=== PATIENT | female | born 1945 | race African-American/Black ===

== ENCOUNTER 2017-04-24 03:04 | Emergency (ER) | payer MEDICARE, OTHER ==
[2017-04-24] MEDS ORDERED: Thrombin 20,000 UNITS* KIT - spray for topical use - TOPICAL ONE (06:45)
[2017-04-24] MEDS ORDERED: Oxymetazoline 0.05% NASAL SPR* 15 ML BTL LEFT NARE ONE (09:20)
[2017-04-24 09:28] VITALS: BP 129/72
--- NOTE | 2017-04-24 10:12 | ED ---
Gerhard Castillo Angela, scribed for Antonio Kilgore MD on 04/24/17 at 0912 . Progress - Progress Note Progress Note: This pt was signed out by Dr. Morgan, pending disposition, awaiting procedure. Thrombin unavailable per pharmacy, bleeding controlled spontaneously w pressure. Oxymetaz nasal spray administered, pt in no acute distress, instructed to fu wiht ENT and pmd and to return to the ED if any recurrence. pt agreees to and understnads dc instructions no nasal septal hematoma appreciated Re-Evaluation - Re-Evaluation First Eval Re-Evaluation Time: 10:11 Course/Dx - Diagnoses Provider Diagnoses: Epistaxis The documentation as recorded by the Gerhard prieto Angela accurately reflects the service I personally performed and the decisions made by , Antonio Kilgore MD.
--- NOTE | 2017-04-25 03:13 | ED ---
Jose L Castillo Benjamin, scribed for Alice Morgan MD on 04/24/17 at 0701 . Throat Pain/Nasal Congestion - HPI Summary HPI Summary: 71yo female BIBA c/o waking up with sudden bilateral epistaxis. Nose bleed started spontaneously without any trauma. Pt is not on any blood thinner and last epistaxis episode pt had was 12 years ago. Last time, pt was seen by ENT, who cauterized her nosebleed. Pt went through 2 towels of blood and bleeding is now controlled with pressure. Pt states that she feels a clot at the back of her nasal cavity and wants to blow her nose to relieve the clot. Pt states the blood came primarily from her left nostril, but "overflowed" to her right nostril, and also came out of both eyes. Pts vital sign were: BP 168/89 O2 sat of 95, pulse 99 upon intial evaluation. FHx of Pagets ds in her father, bone CA, and Lung CA. Hx of HTN, left knee replacement. - History of Current Complaint Chief Complaint: EDEpistaxis Hx Obtained From: Patient Onset/Duration: Sudden Onset, Lasting Hours, Resolved Severity: Mild Associated Signs And Symptoms: Positive: Negative Cough: None Related History: Other (Noted In Comments) - prior nosebleed requiring cautery, years ago - Allergies/Home Medications Allergies/Adverse Reactions: Allergies Allergy/AdvReac Type Severity Reaction Status Date / Time Aspirin Allergy NOSE BLEED Verified 10/14/13 07:23 Penicillins Allergy EYE AND Verified 10/14/13 07:23 THROAT EDEMA ENVIRONMENTAL Allergy WHEEZE, Uncoded 10/14/13 07:23 ITCHING, SNEEZING PMH/Surg Hx/FS Hx/Imm Hx Previously Healthy: No Endocrine/Hematology History: Reports: Hx Anemia Cardiovascular History: Reports: Hx Hypertension - ON MEDS Respiratory History: Reports: Hx Asthma GI History: Reports: Hx Ulcer - 15 YEARS AGO Musculoskeletal History: Reports: Hx Arthritis - KNEES, RIGHT THUMB Sensory History: Reports: Hx Cataracts - SIN, Hx Contacts or Glasses - GLASSES Denies: Hx Hearing Aid Opthamlomology History: Reports: Hx Cataracts - SIN, Hx Contacts or Glasses - GLASSES Psychiatric History: Reports: Hx Anxiety - ON MEDS, Hx Depression - ON MEDS - Surgical History Surgery Procedure, Year, and Place: GASTRIC BYPASS, 2003, [place]. LEFT KNEE REPLACEMENT, 2010, [facility] [place]. GALLBLADDER, 1992, [facility] [place]. SIN EYELID, 2006, [place]. LEFT WRIST 195. TUBAL LIGATION, 1977, [facility] [place] Hx Anesthesia Reactions: No Infectious Disease History: No Infectious Disease History: Denies: Traveled Outside the [place] in Last 30 Days - Family History Known Family History: Positive: Other - Pagets dz, bone CA, and Lung CA. Negative: Cardiac Disease, Hypertension - Social History Alcohol Use: None Substance Use Type: Reports: None Smoking Status (MU): Former Smoker Amount Used/How Often: 1-2 PACKS A DAY Have You Smoked in the Last Year: No Review of Systems Constitutional: Negative Eyes: Negative Positive: Epistaxis - bilateral Cardiovascular: Negative Respiratory: Negative Gastrointestinal: Negative Genitourinary: Negative Musculoskeletal: Negative Skin: Negative Neurological: Negative Psychological: Normal All Other Systems Reviewed And Are Negative: Yes Physical Exam Triage Information Reviewed: Yes Vital Signs On Initial Exam: Initial Vitals Temp Pulse Resp BP Pulse Ox 98.3 F 85 18 145/81 97 04/24/17 03:04 04/24/17 03:04 04/24/17 03:04 04/24/17 03:04 04/24/17 03:04 Vital Signs Reviewed: Yes Appearance: Positive: Well-Appearing, No Pain Distress, Obese Skin: Positive: Warm, Skin Color Reflects Adequate Perfusion, Dry Head/Face: Positive: Normal Head/Face Inspection Eyes: Positive: EOMI, JEANNETTE, Conjunctiva Clear, Other: - evidence of dried blood under both eyes consistent with pt's hx of blood from her nose and eyes. No eye abnormality noted. ENT: Positive: Hearing grossly normal, Pharynx normal, TMs normal, Other - No bleeding in the back of the throat or back of the nose, but visible clots in bilat nares. No active nosebleeding site identified. Neck: Positive: Supple Respiratory/Lung Sounds: Positive: Clear to Auscultation, Breath Sounds Present Cardiovascular: Positive: RRR, Pulses are Symmetrical in both Upper and Lower Extremities. Negative: Murmur Abdomen Description: Positive: Nontender, Soft Bowel Sounds: Positive: Present Musculoskeletal: Positive: Strength/ROM Intact Neurological: Positive: Sensory/Motor Intact, Alert, Oriented to Person Place, Time, Facial Symmetry, Speech Normal Psychiatric: Positive: Affect/Mood Appropriate - [place] Coma Scale Coma Scale Total: 15 Diagnostics - Vital Signs Vital Signs Temp Pulse Resp BP Pulse Ox 04/24/17 03:04 98.3 F 85 18 145/81 97 - Laboratory Lab Statement: Any lab studies that have been ordered have been reviewed, and results considered in the medical decision making process. Re-Evaluation - Re-Evaluation First Eval Re-Evaluation Time: 10:11 EENT Course/Dx - Course Course Of Treatment: Reviewed pts medication and allergy lists. High Blood pressure noted. Assessment/Plan: Pt wishes to "blow out the clot". Care will be signed out to Dr. Kilgore at change of shift for further management with possible nasal thrombin. Pt does not want "rhino rocket". Bleeding controlled at time of sign out, 0700. - Differential Diagnoses Differential Diagnoses: Allergic Rhinitis, Coagulopathy, Hypertension, Sinusitis - Diagnoses Provider Diagnoses: Epistaxis, Hypertension, poor control Discharge - Discharge Plan Condition: Improved Disposition: HOME Patient Education Materials: Nosebleed (ED) Referrals: Tomas Bautista MD [Medical Doctor] - Wild Dudley MD [Primary Care Provider] - Additional Instructions: PLEASE MAKE AN APPOINTMENT FIRST THING IN THE MORNING TO BE SEEN BY YOUR PRIMARY CARE DOCTOR AND ENT DOCTOR WITHIN 1 WEEK IF SYMPTOMS HAPPEN AGAIN PLEASE RETURN TO THE EMERGENCY ROOM IF YOU HAVE ANY WORSENING OR CONCERNING SYMPTOMS The documentation as recorded by the Jose L prieto Benjamin accurately reflects the service I personally performed and the decisions made by me, Alice Morgan MD.
== END 2017-04-24 10:29 | disposition home or self-care (01) ==
LOC: ED 03:04
DX: R04.0 Epistaxis (principal); I10 Essential (primary) hypertension; Z87.891 Personal history of nicotine dependence
CPT/HCPCS: 99283; A9270-GY

== ENCOUNTER 2019-09-06 19:59 | Inpatient (IN) | payer MEDICARE, OTHER ==
[2019-09-06 20:58] LABS: Influenza A Molecular Negative (Negative); Influenza B Molecular Negative (Negative)
[2019-09-06] MEDS ORDERED: Albuterol/Ipratropium NEB.SOL* Albuterol 2.5 MG/Ipratropium 0.5 MG 3 ML INH ONE (21:25)
[2019-09-06 21:33] LABS: Hematocrit 40 % (35-47); Hemoglobin 13.6 g/dL (12.0-16.0); Mean Corpuscular HGB Conc 34 g/dL (31-36); Mean Corpuscular Hemoglobin 29 pg (27-31); Mean Corpuscular Volume 85 fL (80-97); Mean Platelet Volume 8.5 fL (7.4-10.4); Platelet Count 376 10^3/uL (150-450); Red Blood Count 4.75 10^6 /uL (3.70-4.87); Red Cell Distribution Width 16 % (10-15)
[2019-09-06 21:38] LABS: ABS Basophils 0.1 10^3/ul (0-0.2); ABS Lymphocytes 1.3 10^3/ul (1.0-4.8); ABS Monocytes 1.7 10^3/ul (0-0.8); ABS Neutrophils 14.8 10^3/ul (1.5-7.7); Eosinophil % 0.2 %; Lymphocyte % 7.2 %
--- NOTE | 2019-09-06 21:39 | ED ---
Complex/Multi-Sys Presentation - HPI Summary HPI Summary: Patient is a 74 y/o F presenting to [facility] with complaints of SOB, chest pain, cough, decreased appetite, fatigue, and subjective fever. Patient states that chest pain occurs whenever she takes in a deep breath; this Sx onset 09/01/19. Patient describes her subjective fevers as intermittent. She denies vomiting and diarrhea. 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 She reports Hx of HTN, COPD, asthma but denies Hx of HLD, diabetes, and cardiac disease. Penicillin and ASA allergy claimed. PSHx of Jessica-en-Y and cholecystectomy noted. FMHx of bone and lung CA reported. She states that she takes prednisone daily and took breathing treatments at home without relief in Sx. Home medications and allergies are reviewed. - History Of Current Complaint Chief Complaint: EDShortnessOfBreath Time Seen by Provider: 09/06/19 20:19 Hx Obtained From: Patient Onset/Duration: Lasting Days Timing: Intermittent, Lasting: - fever, Hours Location: Pain At: - chest Aggravating Factor(s): deep breaths Associated Signs And Symptoms: Positive: SOB, Cough, Chest Pain, Decreased Oral Intake - decreased appetite, Fever - subjective, Other - fatigue - Allergies/Home Medications Allergies/Adverse Reactions: Allergies Allergy/AdvReac Type Severity Reaction Status Date / Time aspirin Allergy Bleeding Verified 09/06/19 20:12 Penicillins Allergy Anaphylatic Verified 09/06/19 20:12 Shock ENVIRONMENTAL Allergy WHEEZE, Uncoded 10/14/13 07:23 ITCHING, SNEEZING Home Medications: Home Medications Acetaminophen [Gnp Pain Relief Extra Str] 2 tab PO PRN 10/05/13 [History Confirmed 10/14/13] Albuterol Sulfate [Proventil Hfa] 2 puff INH Q4HR PRN 10/05/13 [History Confirmed 09/07/19] Citalopram Hydrobromide 30 mg PO BEDTIME 10/05/13 [History Confirmed 09/07/19] Fluticasone/Salmeterol [Advair 500-50 Diskus] 1 puff INH QAM 10/05/13 [History Confirmed 09/07/19] Hydrochlorothiazide TAB* [Hydrodiuril TAB*] 25 mg PO DAILY 10/05/13 [History Confirmed 09/07/19] Viactiv Multi-Vitamin 1 tab PO DAILY 10/05/13 [History Confirmed 10/14/13] Vitamin B 12 500 mcg PO QAM 10/05/13 [History Confirmed 09/07/19] hydrOXYzine HCL [Hydroxyzine HCl] 10 mg PO QID PRN 09/07/19 [History Confirmed 09/07/19] Albuterol 2.5MG/3ML (0.083%)* [Ventolin 2.5 MG/3 ML NEB.JUANJO*] 2.5 mg INH Q4H PRN #2 neb.soln 09/11/19 [Rx] Benzonatate CAP* [Tessalon 100 MG CAP*] 100 mg PO Q6H PRN #30 cap 09/11/19 [Rx] Levofloxacin TAB* [Levaquin 750 MG TAB*] 750 mg PO DAILY #5 tab 09/11/19 [Rx] Magnesium Hydroxide LIQ* [Milk of Magnesia LIQ*] 30 ml PO BID #1 udc 09/11/19 [ Rx] guaiFENesin 100 mg/5 ml LIQ [Robitussin 100 mg/5ml LIQ] 5 ml PO Q4H PRN #1 udc 09/11/19 [Rx] PMH/Surg Hx/FS Hx/Imm Hx Endocrine/Hematology History: Reports: Hx Anemia Cardiovascular History: Reports: Hx Hypertension - ON MEDS Respiratory History: Reports: Hx Asthma, Hx Chronic Obstructive Pulmonary Disease (COPD) GI History: Reports: Hx Ulcer - 15 YEARS AGO Musculoskeletal History: Reports: Hx Arthritis - KNEES, RIGHT THUMB Sensory History: Reports: Hx Cataracts - SIN, Hx Contacts or Glasses - GLASSES Denies: Hx Hearing Aid Opthamlomology History: Reports: Hx Cataracts - SIN, Hx Contacts or Glasses - GLASSES Psychiatric History: Reports: Hx Anxiety - ON MEDS, Hx Depression - ON MEDS - Surgical History Surgery Procedure, Year, and Place: GASTRIC BYPASS, 2003, [place]. LEFT KNEE REPLACEMENT, 2009, [facility] [place]. GALLBLADDER, 1992, [facility] [place]. SIN EYELID, 2006, [place]. LEFT WRIST 195. TUBAL LIGATION, 1977, [facility] [place] Hx Anesthesia Reactions: No Infectious Disease History: No Infectious Disease History: Denies: Traveled Outside the [place] in Last 30 Days - Family History Known Family History: Positive: Other - Pagets dz, bone CA, and Lung CA. Negative: Cardiac Disease, Hypertension - Social History Alcohol Use: None Substance Use Type: Reports: None Smoking Status (MU): Former Smoker Amount Used/How Often: 1-2 PACKS A DAY Have You Smoked in the Last Year: No Review of Systems - ROS Summary Review of Systems Summary: Home Medications Medication Instructions Recorded Confirmed Type Acetaminophen [Gnp Pain Relief 2 tab PO PRN 10/05/13 10/14/13 History Extra Str] Albuterol Sulfate [Proventil Hfa] 1 puff INH BID 10/05/13 10/14/13 History Citalopram Hydrobromide 20 mg PO BEDTIME 10/05/13 10/14/13 History Fluticasone Propionate (Nasal) 1 spray BOTH NARES DAILY 10/05/13 10/14/13 History [Fluticasone Propionate] Fluticasone/Salmeterol [Advair 1 puff INH BID 10/05/13 10/14/13 History Diskus 500-50 Mcg/Dose] Hydrochlorothiazide TAB* 12.5 mg PO DAILY 10/05/13 10/14/13 History [Hydrodiuril TAB*] Meclizine TAB* [Antivert TAB*] 25 mg PO TID PRN 10/05/13 10/14/13 History Multivitamin 2 tab PO DAILY 10/05/13 10/14/13 History Viactiv Multi-Vitamin 1 tab PO DAILY 10/05/13 10/14/13 History Vitamin B 12 500 mcg PO BID 10/05/13 10/14/13 History Positive: Fever - subjective , Fatigue Positive: Chest Pain Positive: Shortness Of Breath, Cough Gastrointestinal: Other - Decreased Appetite Negative: Vomiting, Diarrhea All Other Systems Reviewed And Are Negative: Yes Physical Exam - Summary Physical Exam Summary: General: Well-developed, Obese, Elderly Female. Mild Respiratory Distress. HEENT: Normocephalic, Atraumatic. Eyes: Conjuctiva normal, PERRL. Oropharynx: Clear, mucous membranes moist, (-) exudates. Neck: Soft, FROM, (-) lymphadenopathy, (-) thyromegaly, (-) JVD. Cardiovascular: Normal sinus rhythm, (-) murmur. Lungs: Appears in mild respiratory distress, decreased breath sounds bilaterally , tight wheezing throughout, poor air exchange; (-) rales, (-) rhonchi. Abdomen: Soft, non-tender, non-distended, (-) organomegaly, normal bowel sounds. Back: (-) CVA tenderness Extremities: 1+ BLE edema Skin: Warm, dry, (-) rash. Neuro: Alert and oriented x3, moves all extremities equally. No ataxia. No gait disturbance. No sensory deficit. Normal strength, normal sensation. Psychiatric: Mood normal, affect normal. Triage Information Reviewed: Yes Vital Signs On Initial Exam: Initial Vitals Temp Pulse Resp BP Pulse Ox 98.1 F 109 20 124/65 93 09/06/19 20:08 09/06/19 20:08 09/06/19 20:08 09/06/19 20:08 09/06/19 20:08 Vital Signs Reviewed: Yes Procedures - Sedation Patient Received Moderate/Deep Sedation with Procedure: No Diagnostics - Vital Signs Vital Signs Temp Pulse Resp BP Pulse Ox 09/06/19 21:10 97.9 F 09/06/19 21:00 111 21 118/78 91 09/06/19 20:58 24 09/06/19 20:08 98.1 F 109 20 124/65 93 - Laboratory Lab Results: Lab Results 09/06/19 09/06/19 Range/Units 20:20 21:21 WBC 18.0 H (3.5-10.8) 10^3/uL RBC 4.75 (3.70-4.87) 10^6 /uL Hgb 13.6 (12.0-16.0) g/dL Hct 40 (35-47) % MCV 85 (80-97) fL MCH 29 (27-31) pg MCHC 34 (31-36) g/dL RDW 16 H (10-15) % Plt Count 376 (150-450) 10^3/uL MPV 8.5 (7.4-10.4) fL Neut % (Auto) Pending Lymph % (Auto) Pending [place] % (Auto) Pending Eos % (Auto) Pending Baso % (Auto) Pending Absolute Neuts (auto) Pending Absolute Lymphs (auto) Pending Absolute Monos (auto) Pending Absolute Eos (auto) Pending Absolute Basos (auto) Pending Absolute Nucleated RBC Pending Nucleated RBC % Pending Influenza A (Rapid) Negative (Negative) Influenza B (Rapid) Negative (Negative) Result Diagrams: 09/10/19 04:38 09/11/19 04:42 Lab Statement: Any lab studies that have been ordered have been reviewed, and results considered in the medical decision making process. - Radiology CXR Radiology Interpretation Completed By: ED Physician Summary of Radiographic Findings: Decreased inflation of left lung, pending official report. - CT CHEST CT CT Interpretation Completed By: Radiologist Summary of CT Findings: IMPRESSION: 1. Left upper lobe collapse and opacification of the left upper lobe bronchus. A bronchoscopy is suggested to exclude an endobronchial tumor. 2. Pretracheal lymphadenopathy. THIS REPORT WAS REVIEWED BY ED PHYSICIAN. - EKG 2020 Cardiac Rate: Tachycardia - rate of 113 BPM EKG Rhythm: Sinus Tachycardia Summary of EKG Findings: EKG showed sinus tachycardia with rate of 113 BPM, no STEMI. ED physician has reviewed and interpreted this EKG. Complex Multi-Symp Course/Dx Course Of Treatment: 74-year-old female presents with chest pain when she takes a deep breath. Started on August 31. Subjective fevers. Fatigue. Dry cough. No appetite. 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 She reports Hx of HTN, COPD, asthma. She states that she takes prednisone daily and took breathing treatments at home without relief in Sx. On physical exam, patient in mild respiratory distress, decreased breath sounds bilaterally, tight wheezing throughout, poor air exchange. During ED course, patient received duoneb, solu- medrol. Laboratories demonstrate elevated white count. CT scan demonstrates partial upper left lobe collapse. Lymphadenopathy in the perihilar region. Patient referred to hospitalist for admission. - Diagnoses Provider Diagnoses: Collapse of left lung, COPD exacerbation - Physician Notifications Discussed Care Of Patient With: Kelly Solorio Time Discussed With Above Provider: 23:45 Instructed by Provider To: Other - Patient's case was discussed with Dr. Soolrio, Dr. Solorio to admit the patient to hospitalist services. Discharge ED - Sign-Out/Discharge Documenting (check all that apply): Patient Departure - admit - Discharge Plan Condition: Improved Disposition: ADMITTED TO [facility] - Billing Disposition and Condition Condition: IMPROVED Disposition: Admitted to [facility] - Attestation Statements Document Initiated by Pricilaibramona: Yes Documenting Scribe: MG VILLANUEVA Provider For Whom [facility] is Documenting (Include Credential): ALY CAPELLAN MD Scribe Attestation: IMG, scribed for ALY CAPELLAN MD on 09/15/19 at 2045. Scribe Documentation Reviewed: Yes Provider Attestation: The documentation as recorded by the pricilaibMG greene accurately reflects the service I personally performed and the decisions made by me, ALY CAPELLAN MD Status of Scribe Document: Viewed
[2019-09-06 21:41] LABS: INR 1.34 (0.82-1.09)
[2019-09-06 21:52] LABS: Albumin 3.1 g/dL (3.2-5.2); Albumin/Globulin Ratio 0.7 (1-3); BUN/Creatinine Ratio 23.4 (8-20); Calcium 11.1 mg/dL (8.6-10.3); EGFR African American 45.4 (>60); EGFR Non-African American 37.5 (>60); Globulin 4.3 g/dL (2-4); Potassium 3.9 mmol/L (3.5-5.0); Total Bilirubin 1.2 mg/dL (0.2-1.0); Total Protein 7.4 g/dL (6.4-8.9)
[2019-09-06 21:53] LABS: Troponin I 0.01 ng/mL (<0.03)
[2019-09-06] MEDS ORDERED: methylPREDNISolone 125 MG* 2 ML VIAL IV ONE (22:02)
[2019-09-07] MEDS ORDERED: Albuterol 2.5 MG/3 ML NEB.SOL* (0.083%) INH PRN ×2 (00:13→17:50)
[2019-09-07] MEDS ORDERED: NS 0.9% 1000 ML** 1,000 ML IV SCH (00:15)
[2019-09-07] MEDS ORDERED: Acetaminophen TAB* 325 MG PO PRN (00:26)
[2019-09-07] MEDS ORDERED: Ondansetron INJ* 2 MG/ML VIAL IV PRN (00:26)
[2019-09-07] MEDS: Cefepime 2 GM in Dextrose(*) 2 GM/50 ML BAG IV SCH ×2 (02:18→14:21)
[2019-09-07] MEDS ORDERED: Albuterol/Ipratropium NEB.SOL* Albuterol 2.5 MG/Ipratropium 0.5 MG 3 ML INH SCH (03:00)
[2019-09-07] MEDS ORDERED: Albuterol/Ipratropium NEB.SOL* Albuterol 2.5 MG/Ipratropium 0.5 MG 3 ML INH PRN (03:08)
[2019-09-07 03:30] LABS: Troponin I 0.03 ng/mL (<0.03)
--- NOTE | 2019-09-07 03:33 | HP ---
CC: Dr. Dudley; Dr. Campo * HISTORY AND PHYSICAL: DATE OF ADMISSION: 09/07/19 PRIMARY CARE PROVIDER: Dr. Dudley. ATTENDING PHYSICIAN WHILE IN THE HOSPITAL: Dr. Solorio * (report dictated by Ronak Otto NP). CONSULTING CORPORATE GIVING MANAGER: Dr. Campo. CHIEF COMPLAINT: 1. Cough. 2. Shortness of breath. HISTORY OF PRESENTING ILLNESS: Ms. Wall is a 74-year-old female patient who carries a history of asthma; vertigo; hypertension; arthritis; PILAR, not on a mask; and depression, who comes in to our ER today stating that on last week she developed right-sided chest discomfort that she described as a sharp, stabbing pain worse with cough and deep breath that eventually throughout the remainder of the weekend on Saturday started going over to her left chest, which she says felt like a sharp, stabbing pain that got worse if she took a deep breath or anytime she coughed. She noted that she was becoming short of breath particularly with exertion and at rest but denied any orthopnea or weight gain or weight loss for that matter. She says that she has been feeling chills. She has not had any recent travel, no recent surgery. She said that she is a homebody, the only person that she has contact with is a friend that helps her with her medications that comes every 3 days and helps with cleaning. She says she has not really had an appetite since Saturday last week. She has not really had any hemoptysis. No productive cough. She denies again any sick contacts or travel and says that the chest pain comes whenever she takes a deep breath or coughs. She says that she has not had any tarry stools and she says her last colonoscopy was greater than 10 years ago. She denied any documented fever. No nausea, vomiting, or diarrhea was reported and no abdominal discomfort. She came in to the ED, was ultimately found that she appeared to have an element of sepsis on her initial lab findings and she had a CT, which was concerning for a possible left upper lobe collapse and opacification of the left upper lobe bronchus. Because of these findings, we were asked to evaluate for admission. PAST MEDICAL HISTORY: Significant for: 1. Asthma. 2. Vertigo. 3. Hypertension. 4. Arthritis. 5. Depression. 6. PILAR. PAST SURGICAL HISTORY: 1. She has had a tubal ligation. 2. Left total knee arthroplasty. 3. Cataracts. 4. Laparoscopic cholecystectomy. 5. Gastric bypass. HOME MEDICATIONS: At this point, she does not have her purse with her and she cannot update. The old list in the computer I have is: 1. Vitamin B12 500 mcg p.o. b.i.d. 2. Multivitamin 1 tablet daily. 3. Meclizine 25 mg t.i.d. as needed. 4. Hydrochlorothiazide 12.5 mg daily, but she says she stopped this. 5. Advair 1 puff inhaled b.i.d. 6. Fluticasone 1 spray both nares daily. 7. Citalopram 20 mg at bedtime. 8. Albuterol 1 puff inhaled b.i.d. 9. Tylenol 2 tablets daily as needed. We will need to update this list with her PCP when able. ALLERGIES TO MEDICATIONS: Include ASPIRIN, PENICILLIN, and ENVIRONMENTAL. FAMILY HISTORY: Her mother had a history of lung cancer, she was a heavy smoker , and father had a history of Paget disease. SOCIAL HISTORY: The patient is a former smoker, she quit 3 years ago. She was smoking E-cigarettes, but prior to that she was a 2-zgwv-q-day smoker for approximately 50+ years. She does not drink alcohol. She is . She has no children. She is unable to appoint a surrogate decision maker at this point. She is unsure who she wants to appoint. REVIEW OF SYSTEMS: There is no documented fever. She does admit to having chills. She denied having any significant weight change. There is no ear discharge. There is no rhinorrhea. No sore throat. No thyroid enlargement. She does admit to chest pain, shortness of breath with rest and exertion. There is no orthopnea, no nocturnal dyspnea, no abdominal pain, no nausea, no vomiting, no dysuria, no frequency, no seizure, no loss of consciousness, no pruritus, and no skin ulcerations. Review of 14 systems completed, all others are negative. PHYSICAL EXAMINATION GENERAL: At this time, Ms. Wall is a 74-year-old female patient; she is sitting in the ED stretcher. She does not appear to be in any acute distress. She is morbidly obese. VITAL SIGNS: Blood pressure 160/89; pulse 108; respirations were 28; O2 saturation 94%, she is on 2 L; and temperature 97.9. HEENT: Head: Atraumatic, normocephalic. Eyes: EOMs are intact. Sclerae anicteric, not pale. Throat: Oral mucosa appears to be moist. No oropharyngeal erythema. NECK: Supple. LUNGS: She had expiratory wheezing throughout. Decreased breath sounds in the left upper lobe. Equal diaphragmatic expansion. HEART: Heart sounds S1, S2. Regular rate and rhythm. No murmurs, rubs, or gallops. ABDOMEN: Soft, flat, nontender. Bowel sounds present. EXTREMITIES: Pulses were 2+ throughout. She has no peripheral edema noted. NEUROLOGICAL: She is awake, alert, oriented x3. Speech was clear. Strength was equal throughout. No gross focal deficits. SKIN: Grossly intact. LABORATORY DATA/DIAGNOSTIC STUDIES: WBC of 18.0, RBC of 4.75, hemoglobin of 13.6, hematocrit of 40, platelet count 376. INR 1.34. Blood gas revealed a pH of 7.36, pCO2 of 34, pO2 of 69, bicarb of 20.6. Sodium 135; potassium 3.9; chloride of 101; bicarb 19; BUN 32; creatinine 1.37, which is up from her baseline of 0.8; glucose of 111, lactate 1, calcium 11.1. Total bili 1.2, AST 19, ALT 21, alk phos 203. Troponin 0.01. BNP 102. Albumin 3.1. Serology negative for flu. She had a chest CT which showed, impression: Left upper lobe collapse and opacification of the left upper lobe bronchus. A bronchoscopy is suggested to exclude an endobronchial tumor. Paratracheal lymphadenopathy noted. Again, when I reviewed the chest x- ray, she does appear to have whiteout of the left lung. An EKG today shows a sinus tachycardia, rate of 109. She had no T-wave inversion noted. They were flat in aVL but there is artifact. No ST elevation. I reviewed her EKG from earlier tonight, it appears to be again similar in nature, no acute findings, no acute changes noted. Old medical records were reviewed. ASSESSMENT AND PLAN: Ms. Duke Gross is a 74-year-old female patient coming in to the ED today with complaints of cough, not feeling well, fatigue, decreased appetite. On evaluation today, on CT imaging found to have collapse of the left upper lobe with opacification. She will be admitted under inpatient status for: 1. Severe sepsis. I suspect that she has postobstructive pneumonia. She has a white count of 18,000. She is tachycardic. She does have some acute kidney injury, which could be acute tubular necrosis. My plan at this point, I would not give her the 30 cc/kg bolus because her blood pressure is maintaining. I would give her saline at 100 an hour as I do think she is a little dehydrated. I am placing her on cefepime. We will be monitoring for any cross reactivity, although this is unlikely to happen. We will consult with Pulmonology tomorrow for possible bronchoscopy and tissue sampling if she is stable enough to do from respiratory standpoint. Her lactates were stable. We will get blood cultures, legionella antigen, Streptococcus pneumoniae antigen. We will continue with pulmonary toileting and try to get a sputum culture if possible. 2. Asthma exacerbation. Again, she is wheezing on exam. I suspect that the pneumonia is contributing. I will place her on again antibiotics. Steroid have been ordered, nebulizers [id number] with p.r.n. nebs and inhaled Dulera. 3. Chest pain. I suspect this is related to costochondritis and pleurisy secondary to the mass. We will treat with p.r.n. Tylenol and pain medications. I will cycle her troponins. There is a likelihood that she could have concurrent pulmonary embolism; however, I have other reasons to explain her dyspnea, hypoxia. At this point, I will continue to monitor. If she is not showing improvement, we could consider further workup with DVT, ultrasound, or CTA in the future, but at this point, again I suspect that the chest pain, hypoxia, and the tachycardia are being driven by the sepsis, postobstructive pneumonia, and asthma exacerbation. 4. Hypertension. At this point, we will treat her if her blood pressure gets over 180 systolically or greater than 110 diastolic. We will continue to monitor. 5. Arthritis. P.r.n. Tylenol as available. 6. Depression. We will need to confirm her medications, but we will start her SSRI when able. 7. Obstructive sleep apnea. She will need to establish with Pulmonology. She does not wear a CPAP anymore. 8. DVT prophylaxis: She is right risk. I have ordered heparin subcu. 9. Code status: She wishes to be a DNR. We will fill out a MOLST form. 10. Fluid, electrolytes, nutrition: She is n.p.o. pending possible bronchoscopy today. TIME SPENT: Time spent on the admission was 60 minutes, greater than half the time was spent [id number] with the patient obtaining my history and physical, the other half time spent going over the plan of care with the patient and implementing the plan of care. I discussed the plan of care with my attending Dr. Solorio; she is in agreement. RONAK OTTO, TINY [id number]/[facility] #: [id number] MTDD
[2019-09-07 05:44] LABS: ABS Basophils 0.1 10^3/ul (0-0.2); ABS Lymphocytes 0.5 10^3/ul (1.0-4.8); ABS Monocytes 0.2 10^3/ul (0-0.8); ABS Neutrophils 14.5 10^3/ul (1.5-7.7); Hematocrit 41 % (35-47); Hemoglobin 13.1 g/dL (12.0-16.0); Lymphocyte % 3.3 %; Mean Corpuscular HGB Conc 32 g/dL (31-36); Mean Corpuscular Hemoglobin 28 pg (27-31); Mean Corpuscular Volume 86 fL (80-97); Mean Platelet Volume 8.1 fL (7.4-10.4); Platelet Count 372 10^3/uL (150-450); Red Blood Count 4.72 10^6 /uL (3.70-4.87); Red Cell Distribution Width 16 % (10-15); White Blood Count 15.3 10^3/uL (3.5-10.8)
[2019-09-07 05:50] LABS: INR 1.22 (0.82-1.09)
[2019-09-07] MEDS: Heparin VIAL(*) 5000 UNITS/ML VIAL (FIVE THOUSAND) SUBCUT SCH ×3 (05:50→22:13)
[2019-09-07] MEDS: methylPREDNISolone 125 MG* 2 ML VIAL IV SCH ×3 (05:50→22:13)
[2019-09-07 06:04] LABS: Anion Gap 12 mmol/L (2-11); BUN/Creatinine Ratio 26.1 (8-20); Blood Urea Nitrogen 36 mg/dL (6-24); CO2 Carbon Dioxide 22 mmol/L (22-32); Calcium 10.9 mg/dL (8.6-10.3); Chloride 101 mmol/L (101-111); EGFR Non-African American 37.2 (>60); Glucose 154 mg/dL (70-100); Potassium 4.4 mmol/L (3.5-5.0); Sodium 135 mmol/L (135-145)
[2019-09-07 06:07] LABS: Troponin I 0.03 ng/mL (<0.03)
--- NOTE | 2019-09-07 07:33 | PN ---
Subjective Date of Service: 09/07/19 Interval History: HD 2 on 09/06 74 F with PMH of HTN, [place], PILAR, Depression and vertigo presented with pleuritic chest pain associated with cough and SOB on exertion. FOund to be in severe sepsis secondary to Pneumonia secondary to ?endobronchial obstruction, Left upper lobe collapse, AFSANEH and elevated troponin. Overnight: Admission Patient seen and examined at bedside. Patient feels she is feeling better than before. She states that since 1 week she is having loss of appetite. She is having pleuritic chest pain associated with SOB but no orthopnea and PND. SHe used to smoke 2-3 PPD since age 17 till 10 years ago then started e- cigarettes(nicotine free) and left 3 years ago. had bariatic surgery 16 years ago. Objective Active Medications: Acetaminophen (Tylenol Tab*) 650 mg PO Q6H PRN PRN Reason: FEVER/PAIN Albuterol (Ventolin 2.5 Mg/3 Ml Neb.Brenda*) 2.5 mg INH Q2H PRN PRN Reason: SOB/WHEEZING Albuterol/Ipratropium (Duoneb (Albuterol 2.5 Mg/Ipratropium 0.5 Mg)) 1 neb INH [id number] AWAKE PRN PRN Reason: improved clinical condition Heparin Sodium (Porcine) (Heparin Vial(*)) 5,000 units SUBCUT Q8HR [facility] Last Admin: 09/07/19 05:50 Dose: 5,000 units Sodium Chloride (Ns 0.9% 1000 Ml) 1,000 mls @ 100 mls/hr IV PER RATE [facility] Last Admin: 09/07/19 02:18 Dose: 100 mls/hr Cefepime HCl (Maxipime 2 Gm In Dextrose Duplex (*)) 2 gm in 50 mls @ 100 mls/ hr IV Q12H [facility] Last Admin: 09/07/19 02:18 Dose: 100 mls/hr Methylprednisolone Sodium Succinate (Solu-Medrol 125mg *) 60 mg IV Q8H [facility] Last Admin: 09/07/19 05:50 Dose: 60 mg Mometasone Furoate/Formoterol Fumar (Dulera 200/5 Mdi*) 2 puff INH BID IZZY Ondansetron HCl (Zofran Inj*) 4 mg IV Q6H PRN PRN Reason: NAUSEA Vital Signs - 8 hr 09/07/19 09/07/19 09/07/19 00:00 00:04 00:30 Temperature Pulse Rate 109 112 105 Respiratory 22 21 20 Rate Blood Pressure 170/106 133/82 (mmHg) O2 Sat by Pulse 92 93 92 Oximetry 09/07/19 09/07/19 09/07/19 00:58 01:00 01:11 Temperature 97.8 F 99.4 F Pulse Rate 101 103 103 Respiratory 20 20 22 Rate Blood Pressure 137/71 109/71 179/71 (mmHg) O2 Sat by Pulse 98 94 94 Oximetry 09/07/19 07:29 Temperature 98.1 F Pulse Rate 88 Respiratory 18 Rate Blood Pressure 143/59 (mmHg) O2 Sat by Pulse 97 Oximetry Oxygen Devices in Use Now: Nasal Cannula Exam: Patient is lying on a bed in supine position and is not in acute dstress. HEENT: Normocephalic and atraumatic. Sclera anicteric. EOMI. PERRLA. Neck: No lymphadenopathy and enlarged thyroid. NO JVD elevation. Lungs: Good respiratory effort and chest expansion. Bilateral wheezes and ronchi heard Heart: Normal in rate and rhythm. S1/S2 heard with no murmur, rubs or gallops. Abdomen: Soft, obese and nontender. Normal BS heard. Extremities; No swelling, cyanosis or clubbing Neuro: Alert, oriented and coperative. CN intact. Motor normal and sensation intact. Result Diagrams: 09/08/19 04:27 09/08/19 04:27 Additional Lab and Data: Lab Results 09/06/19 09/06/19 Range/Units 20:20 21:21 WBC 18.0 H (3.5-10.8) 10^3/uL RBC 4.75 (3.70-4.87) 10^6 /uL Hgb 13.6 (12.0-16.0) g/dL Hct 40 (35-47) % MCV 85 (80-97) fL MCH 29 (27-31) pg MCHC 34 (31-36) g/dL RDW 16 H (10-15) % Plt Count 376 (150-450) 10^3/uL MPV 8.5 (7.4-10.4) fL Neut % (Auto) Pending Lymph % (Auto) Pending Dolores % (Auto) Pending Eos % (Auto) Pending Baso % (Auto) Pending Absolute Neuts (auto) Pending Absolute Lymphs (auto) Pending Absolute Monos (auto) Pending Absolute Eos (auto) Pending Absolute Basos (auto) Pending Absolute Nucleated RBC Pending Nucleated RBC % Pending Influenza A (Rapid) Negative (Negative) Influenza B (Rapid) Negative (Negative) Assess/Plan/Problems-Billing Assessment: 74 F with PMH of HTN, Asthma/COPD, PILAR, Depression and vertigo presented with pleuritic chest pain associated with cough and SOB on exertion. FOund to be in severe sepsis secondary to Pneumonia secondary to ?endobronchial obstruction, Left upper lobe collapse, AFSANEH and elevated troponin. - Patient Problems (1) Severe sepsis Current Visit: Yes Status: Acute Code(s): A41.9 - SEPSIS, UNSPECIFIED ORGANISM; R65.20 - SEVERE SEPSIS WITHOUT SEPTIC SHOCK SNOMED Code(s): 17489679 Comment: -leucocytosis and fever with elevated creatinine -on maintenance fluid -BP on higher side -No fever so far -Source: pneumonia -on Iv cefepiume(started on 09/06) (2) Pneumonia Current Visit: Yes Status: Acute Code(s): J18.9 - PNEUMONIA, UNSPECIFIED ORGANISM SNOMED Code(s): 994013250 Comment: -has left sided PNA -likely obstructive -CT showing left upper lobe collapse -discussed with Dr. Campo- will need bronch -NPO for now -IV cefepime started on 09/06 (3) COPD (chronic obstructive pulmonary disease) Current Visit: Yes Status: Acute Code(s): J44.9 - CHRONIC OBSTRUCTIVE PULMONARY DISEASE, UNSPECIFIED SNOMED Code(s): 84622604 Comment: -has wheezing -gives history of both asthma and COPD -follows with asthma and allergy associates -continue albuterol, dulera and duoneb -started on steroid(09/06) (4) AFSANEH (acute kidney injury) Current Visit: Yes Status: Acute Code(s): N17.9 - ACUTE KIDNEY FAILURE, UNSPECIFIED SNOMED Code(s): 17450629 Comment: -last creatinine in 06/2018 was normal -now with 1.3 -could be pre-renal- as pt was not eating well -on gentle hydration as her Bp is on higher side -will trend (5) S/P bariatric surgery Current Visit: Yes Status: Acute Code(s): Z98.84 - BARIATRIC SURGERY STATUS SNOMED Code(s): 404394932 Comment: -16 years ago -contiue vitamins -morbid obesity (6) Hypercalcemia Current Visit: Yes Status: Acute Code(s): E83.52 - HYPERCALCEMIA SNOMED Code(s): 77303205 Comment: -has lymphadenopathy and hypercalcemia -suspicion of malignancy- will do bronch and biopsy (7) Elevated troponin Current Visit: Yes Status: Acute Code(s): R79.89 - OTHER SPECIFIED ABNORMAL FINDINGS OF BLOOD CHEMISTRY SNOMED Code(s): 919881010 Comment: -likely demand (8) Hypertension Current Visit: Yes Status: Acute Code(s): I10 - ESSENTIAL (PRIMARY) HYPERTENSION SNOMED Code(s): 42917105 Comment: -remote hx of HTN -not on medication at present -will continue to monitor (9) DVT prophylaxis Current Visit: Yes Status: Acute Code(s): Z29.9 - ENCOUNTER FOR PROPHYLACTIC MEASURES, UNSPECIFIED SNOMED Code(s): 271141359 Comment: -heparin (10) DNR (do not resuscitate) Current Visit: Yes Status: Acute Status and Disposition: Inpatient -pulm following Attending: Dia Harden Attestation Documenting Resident: Libra Supervising Physician: Fina Attestation: This service has been performed in part by a resident under the direction of a teaching physician.IFina, performed the service, or was physically present during the critical, or yanez portions of the service, furnished by the resident. I participated in the management of the patient.
[2019-09-07] MEDS: Mometasone/Formoter 200/5 MDI INH SCH ×2 (07:46→19:23)
[2019-09-07] MEDS ORDERED: ceFUROXime 500 mg TAB(NF) 500 MG TAB PO SCH (09:00)
[2019-09-07] MEDS ORDERED: Lidocaine 1% INJ* 10 MG/ML 30 ML SDV ONE (15:23)
[2019-09-07] MEDS ORDERED: Acetylcysteine INHALATION SOL* 200 MG/ML NEB.SOLN 10 ML ONE (15:24)
[2019-09-07] MEDS ORDERED: hydrOXYzine HCL TAB* 10 MG PO PRN (15:39)
[2019-09-07] MEDS ORDERED: Midazolam* 1 MG/ML 10 ML VIAL (10 MG) IV SLOW PU ONE (15:40)
[2019-09-07] MEDS ORDERED: methylPREDNISolone 125 MG* 2 ML VIAL IV ONE (15:40)
[2019-09-07] MEDS ORDERED: fentaNYL* 50 MCG/ML 2 ML VIAL (100 MCG VIAL) IV ONE (15:40)
[2019-09-07] MEDS ORDERED: fentaNYL* 50 MCG/ML 2 ML VIAL (100 MCG VIAL) ONE (15:41)
[2019-09-07] MEDS ORDERED: Midazolam* 1 MG/ML 10 ML VIAL (10 MG) ONE (15:41)
[2019-09-07] MEDS ORDERED: Lidocaine 2% VISCOUS* 15 ML UDC TOPICAL ONE (16:00)
[2019-09-07] MEDS ORDERED: methylPREDNISolone 125 MG* 2 ML VIAL ONE (16:42)
[2019-09-07] MEDS ORDERED: Lidocaine 1% MDV 20 ML ONE (17:15)
--- NOTE | 2019-09-07 18:30 | BRIEFOPN ---
Brief Operative/Procedure Note - Operation Details Pre-Op Diagnosis: Lung collapse- left Post-Op Diagnosis: Endobronchial lesion - ARIEL Procedures: Bronchoscopy and BAL Surgeon(s)/Proceduralists: Alber Anesthesia: Consious sedation with 8cc Versed and 100mcg of Fentanyl. 1% lidocaine 6cc Estimated Blood Loss: Minimal Findings: Endobronchial lesion in ARIEL with near complete occlusion Specimen(s)/Culture(s) Description: BAL from ARIEL Complications: None
--- NOTE | 2019-09-07 22:02 | CONS ---
PULMONARY CONSULTATION REPORT: DATE OF CONSULT: 09/07/19 CONSULTATION REQUESTED BY: Ronak Otto NP REASON FOR CONSULTATION: Evaluation of abnormal CT chest. HISTORY OF PRESENT ILLNESS: The patient is a 74-year-old female former smoker, quit recently with history of asthma, hypertension, PILAR. The patient presents for evaluation of worsening shortness of breath and cough. The patient reports having noticed right-sided chest pain last week that was sharp, stabbing and also extended to her left chest. The patient also was having worsening of the pain with deep breath or coughing. The patient has been having cough with clear phlegm mostly. Denies any hemoptysis. The patient also reports feeling tired and weak. Denies fevers or chills. The patient reports decreased appetite and is unsure about the weight loss. Denies dark stools. Denies nausea , vomiting, diarrhea or abdominal discomfort. Denies urinary complaints. The patient was further evaluated by CT chest in the ED. I have personally reviewed CT scan of the chest and with the patient today. The patient with evidence of atelectasis of left upper lobe. Concern for endobronchial lesion remains. The patient also with evidence of prominent mediastinal lymph nodes. The patient was noted to have elevated white count. Blood gas analysis showed low pO2. The patient was initiated on broad- spectrum antibiotics for possible postobstructive pneumonia. Pulmonary consultation was requested given abnormal CT chest. The patient was seen and examined at bedside. The patient reports feeling tired and fatigued. Reports having intermittent dry cough. She has been requiring O2 supplementation at least 2 L per minute. Given abnormal CT chest, bronchoscopy was performed. PAST MEDICAL HISTORY: 1. Hypertension. 2. Asthma. 3. Vertigo. 4. Arthritis. 5. Depression. 6. Obstructive sleep apnea. PAST SURGICAL HISTORY: 1. Tubal ligation. 2. Left total knee arthroplasty. 3. Cataracts. 4. Laparoscopic cholecystectomy. 5. Gastric bypass. HOME MEDICATIONS: 1. Vitamin B12. 2. Multivitamin. 3. Meclizine. 4. Hydrochlorothiazide. 5. Advair. 6. Fluticasone. 7. Citalopram. 8. Albuterol. 9. Tylenol. ALLERGIES: ASPIRIN, PENICILLIN, ENVIRONMENTAL ALLERGIES. FAMILY HISTORY: Mother with lung cancer, was a heavy smoker and father has history of Paget's disease. SOCIAL HISTORY: Former smoker, quit 3 years ago, was smoking E-cigarettes prior to that and was 2-pack per day smoker for approximately 50 plus years. Does not drink alcohol. She is and has no children. Unable to appoint surrogate decision maker. REVIEW OF SYSTEMS: All 12 systems reviewed, as per HPI. PHYSICAL EXAMINATION: Obese female, in bed, in no apparent distress. Vital Signs: Temperature 98.6, pulse 108 beats per minute, respiratory rate 20 per minute, O2 sat 93% while on 4 L post bronchoscopy, blood pressure 130/58. HEENT : Pupils are equal and reactive to light. Mucous membranes are moist. Lungs: Decreased breath sounds in left side upper lung. Cardiovascular: S1, S2 present. Abdomen: Soft, nontender, nondistended. Bowel sounds present. Extremities: Normal range of motion. Skin: No rash or bruise. Neuro: No focal deficits. DIAGNOSTIC STUDIES/LAB DATA: WBC count 15.3, hemoglobin 13.1, hematocrit 41, platelet count 372, pH 7.36, pCO2 34, pO2 67, O2 sat 92%. Sodium 135, potassium 4.4, chloride 101, bicarb 22, BUN 36, creatinine 1.38. Troponin slightly elevated, influenza A and B negative. Legionella and Strep pneumo antigens are negative. CT chest as described above in HPI. IMPRESSION AND RECOMMENDATIONS: This is a 74-year-old female with significant smoking history with CT chest findings of atelectatic left upper lobe. The patient has bronchoscopy at bedside; please review the bronchoscopy report for further details. The patient was noted to have endobronchial lesion with near complete occlusion of left upper lobe bronchus. The patient was bleeding with minimal suctioning in the area. Biopsies could not be obtained during the procedure. Bronchial washings were obtained from the left side and sent for cytology. The patient tolerated the procedure well. The patient was found to be stable post procedure. [id number]/[facility] #: [id number] [facility]
[2019-09-07] MEDS: Magnesium Hydroxide LIQ* 30 ML UDC PO SCH (22:10)
--- NOTE | 2019-09-08 00:24 | PRO ---
BRONCHOSCOPY REPORT: DATE OF PROCEDURE: 09/07/19 - ICU-15 PROCEDURE PERFORMED: Bronchoscopy with bronchoalveolar lavage. ANESTHESIA: Conscious sedation with 8 of Versed and 100 of fentanyl. DESCRIPTION OF PROCEDURE: Informed consent was obtained from the patient prior to the procedure after all the risks and benefits were thoroughly explained. The patient admitted with cough and shortness of breath, CT chest showed atelectasis of the left upper lobe. Informed consent was obtained from the patient after all the risks of the procedure including risks of respiratory failure and . The patient was taken to the ICU for the procedure to be done under conscious sedation. Negative pressure room was utilized. N95 masks were worn by team involved. The patient was sitting up during the procedure. Adequate numbing of the upper airway was done with lidocaine nebulizer and viscous lidocaine. A total of 6 cc was used. Once optimal sedation was achieved, bronchoscopy was initiated. The patient was placed on 8 L oxygen through nasal cannula during the procedure. Bronchoscope was inserted through the right naris and upper airway was inspected. No lesions were noted, thin secretions were noted, and were suctioned. Bronchoscope was then easily advanced through the vocal cords. No lesions were noted in the trachea or in the right bronchial tree. Thin secretions were noted and were suctioned out. Bronchoscope was subsequently advanced into the left bronchial tree. The patient noted to have endobronchial lesion in the left upper lobe. Area was bleeding with minimal suction. Sylvester blood was noted to be emanating from the area. Bronchoscope could not be advanced any further into that area. Bronchial lavage was obtained from that area. The patient also received 4 cc of Mucomyst as there were thick secretions beneath the endobronchial lesion. The patient had coughing during the procedure and postprocedure and had wheezing and was given neb treatments x2 and 125 of Solu-Medrol. The patient was stable and oxygen saturations were around 96% to 97% while on 8 L oxygen. The patient will be monitored closely until her condition is stable enough for transfer to the regular medical floor. [id number]/[facility] #: [id number] LISAD
[2019-09-08] MEDS: Cefepime 2 GM in Dextrose(*) 2 GM/50 ML BAG IV SCH ×2 (02:01→14:21)
[2019-09-08 04:42] LABS: Hematocrit 37 % (35-47); Hemoglobin 12.1 g/dL (12.0-16.0); Mean Corpuscular HGB Conc 32 g/dL (31-36); Mean Corpuscular Hemoglobin 28 pg (27-31); Mean Corpuscular Volume 86 fL (80-97); Mean Platelet Volume 8.5 fL (7.4-10.4); Platelet Count 423 10^3/uL (150-450); Red Blood Count 4.38 10^6 /uL (3.70-4.87); Red Cell Distribution Width 16 % (10-15)
[2019-09-08 04:59] LABS: BUN/Creatinine Ratio 40.7 (8-20); Calcium 10.3 mg/dL (8.6-10.3); EGFR African American 53.9 (>60); EGFR Non-African American 44.5 (>60); Potassium 4.5 mmol/L (3.5-5.0)
[2019-09-08] MEDS: Heparin VIAL(*) 5000 UNITS/ML VIAL (FIVE THOUSAND) SUBCUT SCH ×3 (05:48→21:21)
[2019-09-08] MEDS: methylPREDNISolone SOD 40 MG* 1 ML VIAL IV SCH ×2 (05:48→14:20)
[2019-09-08 06:32] LABS: ABS Basophils 0.1 10^3/ul (0-0.2); ABS Lymphocytes 0.6 10^3/ul (1.0-4.8); ABS Monocytes 0.5 10^3/ul (0-0.8); ABS Neutrophils 12.9 10^3/ul (1.5-7.7); Lymphocyte % 4.3 %
[2019-09-08] MEDS: Magnesium Hydroxide LIQ* 30 ML UDC PO SCH ×2 (08:45→21:21)
[2019-09-08] MEDS: Cholecalciferol TAB* 1000 UNITS PO SCH (08:46)
[2019-09-08] MEDS: Cyanocobalamin TAB* 500 MCG PO SCH (08:46)
[2019-09-08] MEDS: Mometasone/Formoter 200/5 MDI INH SCH ×2 (09:17→19:16)
[2019-09-08] MEDS ORDERED: guaiFENesin/CODIENE 100mg/10mg 5 ML UDC PO PRN (13:30)
[2019-09-08] MEDS ORDERED: Benzonatate CAP* 100 MG PO PRN (13:31)
--- NOTE | 2019-09-08 15:36 | PN ---
Subjective Date of Service: 09/08/19 Interval History: HD 3 on 09/07 74 F with PMH of HTN, Asthma, PILAR, Depression and vertigo presented with pleuritic chest pain associated with cough and SOB on exertion. FOund to be in severe sepsis secondary to Pneumonia secondary to ?endobronchial obstruction, Left upper lobe collapse, AFSANEH and elevated troponin. s/p bronchoscopy in 09/06. Overnight: No acute overnight events Patient seen and examined at bedside. patient having intermittent dry cough. Oxygen requirement increased to 3-4 L. Reports night sweats. Discussed about yesterday bronchoscopy and possible outcomes. Objective Active Medications: Acetaminophen (Tylenol Tab*) 650 mg PO Q6H PRN PRN Reason: FEVER/PAIN Albuterol (Ventolin 2.5 Mg/3 Ml Neb.Brenda*) 2.5 mg INH Q4H PRN PRN Reason: SOB/WHEEZING Albuterol/Ipratropium (Duoneb (Albuterol 2.5 Mg/Ipratropium 0.5 Mg)) 1 neb INH [id number] AWAKE PRN PRN Reason: improved clinical condition Last Admin: 09/07/19 17:22 Dose: 2 neb Benzonatate (Tessalon Cap*) 100 mg PO Q6H PRN PRN Reason: COUGH Cholecalciferol (Vitamin D Tab*) 2,000 units PO QAM [facility] Last Admin: 09/08/19 08:46 Dose: 2,000 units Cyanocobalamin (Vitamin B12 Tab*) 500 mcg PO QAM [facility] Last Admin: 09/08/19 08:46 Dose: 500 mcg Guaifenesin/Codeine Phosphate (Robitussin Ac 100mg/10mg In 5 Ml) 5 ml PO Q6H PRN PRN Reason: COUGH Heparin Sodium (Porcine) (Heparin Vial(*)) 5,000 units SUBCUT Q8HR [facility] Last Admin: 09/08/19 14:20 Dose: 5,000 units Hydroxyzine HCl (Atarax Tab*) 10 mg PO QID PRN PRN Reason: ANXIETY Cefepime HCl (Maxipime 2 Gm In Dextrose Duplex (*)) 2 gm in 50 mls @ 100 mls/ hr IV Q12H [facility] Last Admin: 09/08/19 14:21 Dose: 100 mls/hr Magnesium Hydroxide (Milk Of Magnesia Liq*) 30 ml PO BID [facility] Last Admin: 09/08/19 08:45 Dose: 30 ml Methylprednisolone Sodium Succinate (Solu-Medrol 40 Mg) 60 mg IV Q8H [facility] Last Admin: 09/08/19 14:20 Dose: 60 mg Mometasone Furoate/Formoterol Fumar (Dulera 200/5 Mdi*) 2 puff INH BID [facility] Last Admin: 09/08/19 09:17 Dose: 2 puff Ondansetron HCl (Zofran Inj*) 4 mg IV Q6H PRN PRN Reason: NAUSEA Vital Signs - 8 hr 09/08/19 09/08/19 09/08/19 07:41 08:00 09:20 Temperature 97.5 F Pulse Rate 70 86 Respiratory 18 18 16 Rate Blood Pressure 140/61 (mmHg) O2 Sat by Pulse 100 97 Oximetry 09/08/19 11:35 Temperature 97.3 F Pulse Rate 92 Respiratory 20 Rate Blood Pressure 143/72 (mmHg) O2 Sat by Pulse 99 Oximetry Oxygen Devices in Use Now: Nasal Cannula Exam: Patient is lying on a bed in supine position and is not in acute dstress. HEENT: Normocephalic and atraumatic. Sclera anicteric. EOMI. PERRLA. Neck: No lymphadenopathy and enlarged thyroid. NO JVD elevation. Lungs: Good respiratory effort and chest expansion. Bilateral wheezes and ronchi heard Heart: Normal in rate and rhythm. S1/S2 heard with no murmur, rubs or gallops. Abdomen: Soft, obese and nontender. Normal BS heard. Extremities; No swelling, cyanosis or clubbing Neuro: Alert, oriented and coperative. CN intact. Motor normal and sensation intact. Result Diagrams: 09/08/19 04:27 09/08/19 04:27 Additional Lab and Data: Lab Results 09/06/19 09/06/19 Range/Units 20:20 21:21 WBC 18.0 H (3.5-10.8) 10^3/uL RBC 4.75 (3.70-4.87) 10^6 /uL Hgb 13.6 (12.0-16.0) g/dL Hct 40 (35-47) % MCV 85 (80-97) fL MCH 29 (27-31) pg MCHC 34 (31-36) g/dL RDW 16 H (10-15) % Plt Count 376 (150-450) 10^3/uL MPV 8.5 (7.4-10.4) fL Neut % (Auto) Pending Lymph % (Auto) Pending [place] % (Auto) Pending Eos % (Auto) Pending Baso % (Auto) Pending Absolute Neuts (auto) Pending Absolute Lymphs (auto) Pending Absolute Monos (auto) Pending Absolute Eos (auto) Pending Absolute Basos (auto) Pending Absolute Nucleated RBC Pending Nucleated RBC % Pending Influenza A (Rapid) Negative (Negative) Influenza B (Rapid) Negative (Negative) Assess/Plan/Problems-Billing Assessment: 74 F with PMH of HTN, Asthma/COPD, PILAR, Depression and vertigo presented with pleuritic chest pain associated with cough and SOB on exertion. FOund to be in severe sepsis secondary to Pneumonia secondary to ?endobronchial obstruction, Left upper lobe collapse, AFSANEH and elevated troponin.s/p bronchoscopy on 09/06 - Patient Problems (1) Severe sepsis Current Visit: Yes Status: Acute Code(s): A41.9 - SEPSIS, UNSPECIFIED ORGANISM; R65.20 - SEVERE SEPSIS WITHOUT SEPTIC SHOCK SNOMED Code(s): 84362656 Comment: -resolved -Source: pneumonia- postobstructive -on Iv cefepiume(started on 09/06) (2) Pneumonia Current Visit: Yes Status: Acute Code(s): J18.9 - PNEUMONIA, UNSPECIFIED ORGANISM SNOMED Code(s): 786590706 Comment: -has left sided PNA -post-obstructive -CT showing left upper lobe collapse -s/p broch on 09/06; showing endoobronchial lesion with almost complete occlusion of left upper lobe bronchus; Biopsy not taken; sent bronchial wash; pending results -Appreciate pulm input -IV cefepime started on 09/06 (3) COPD (chronic obstructive pulmonary disease) Current Visit: Yes Status: Acute Code(s): J44.9 - CHRONIC OBSTRUCTIVE PULMONARY DISEASE, UNSPECIFIED SNOMED Code(s): 29319240 Comment: -has wheezing -gives history of both asthma and COPD -follows with asthma and allergy associates -continue albuterol, dulera and duoneb -started on steroid(09/06)- switched to PO from tomorrow (4) AFSANEH (acute kidney injury) Current Visit: Yes Status: Acute Code(s): N17.9 - ACUTE KIDNEY FAILURE, UNSPECIFIED SNOMED Code(s): 86746094 Comment: -Improving-with IV fluids -could be pre-renal- as pt was not eating well -will trend (5) S/P bariatric surgery Current Visit: Yes Status: Acute Code(s): Z98.84 - BARIATRIC SURGERY STATUS SNOMED Code(s): 512504461 Comment: -16 years ago -contiue vitamins -morbid obesity (6) Hypercalcemia Current Visit: Yes Status: Acute Code(s): E83.52 - HYPERCALCEMIA SNOMED Code(s): 60843313 Comment: -has lymphadenopathy and hypercalcemia -improved with fluids -suspicion of malignancy- pending sample result (7) Elevated troponin Current Visit: Yes Status: Acute Code(s): R79.89 - OTHER SPECIFIED ABNORMAL FINDINGS OF BLOOD CHEMISTRY SNOMED Code(s): 068414574 Comment: -likely demand (8) Hypertension Current Visit: Yes Status: Acute Code(s): I10 - ESSENTIAL (PRIMARY) HYPERTENSION SNOMED Code(s): 92999416 Comment: -remote hx of HTN -not on medication at present -will continue to monitor (9) DVT prophylaxis Current Visit: Yes Status: Acute Code(s): Z29.9 - ENCOUNTER FOR PROPHYLACTIC MEASURES, UNSPECIFIED SNOMED Code(s): 432672324 Comment: -heparin (10) DNR (do not resuscitate) Current Visit: Yes Status: Acute Status and Disposition: Inpatient -pulm following Attending: Dia Harden Attestation Documenting Resident: Libra Supervising Physician: Fina Attending/Supervising Physician Comment: Awaiting pathology report; will discuss treatment options at that time. Dr. Campo following. Stable on 3L Attestation: This service has been performed in part by a resident under the direction of a teaching physician.IFina, performed the service, or was physically present during the critical, or yanez portions of the service, furnished by the resident. I participated in the management of the patient.
--- NOTE | 2019-09-08 18:05 | PN ---
Progress Note - Progress Note Date of Service: 09/08/19 - Pulm f/u note Note: Pt seen and examined at bedside. Pt reports feeling better. No hemoptysis. SOB is improved Active Medications Generic Name Dose Route Start Last Admin Trade Name Freq PRN Reason Stop Dose Admin Acetaminophen 650 mg 09/07/19 00:26 Tylenol Tab* PO Q6H PRN FEVER/PAIN Albuterol 2.5 mg 09/07/19 17:50 Ventolin 2.5 Mg/3 Ml Neb.Brenda* INH Q4H PRN SOB/WHEEZING Albuterol/Ipratropium 1 neb 09/07/19 03:08 09/07/19 17:22 Duoneb (Albuterol 2.5 Mg/Ipratropium 0.5 Mg) INH 2 neb [id number] AWAKE PRN Administration improved clinical condition Benzonatate 100 mg 09/08/19 13:31 Tessalon Cap* PO Q6H PRN COUGH Cholecalciferol 2,000 units 09/08/19 09:00 09/08/19 08:46 Vitamin D Tab* PO 2,000 units QAM IZZY Administration Cyanocobalamin 500 mcg 09/08/19 09:00 09/08/19 08:46 Vitamin B12 Tab* PO 500 mcg QAM IZZY Administration Guaifenesin/Codeine Phosphate 5 ml 09/08/19 13:30 Robitussin Ac 100mg/10mg In 5 Ml PO Q6H PRN COUGH Heparin Sodium (Porcine) 5,000 units 09/07/19 06:00 09/08/19 14:20 Heparin Vial(*) SUBCUT 5,000 units Q8HR IZZY Administration Hydroxyzine HCl 10 mg 09/07/19 15:39 Atarax Tab* PO QID PRN ANXIETY Cefepime HCl 2 gm in 50 mls @ 100 mls/hr 09/07/19 02:00 09/08/19 14:21 Maxipime 2 Gm In Dextrose Duplex (*) IV 100 mls/hr Q12H IZZY Administration Magnesium Hydroxide 30 ml 09/07/19 21:00 09/08/19 08:45 Milk Of Magnesia Liq* PO 30 ml BID IZZY Administration Mometasone Furoate/Formoterol Fumar 2 puff 09/07/19 09:00 09/08/19 09:17 Dulera 200/5 Mdi* INH 2 puff BID IZZY Administration Ondansetron HCl 4 mg 09/07/19 00:26 Zofran Inj* IV Q6H PRN NAUSEA Prednisone 50 mg 09/09/19 09:00 Deltasone 50 Mg Tab PO DAILY [facility] Vital Signs Temp Pulse Resp BP Pulse Ox 97.3 F 92 20 143/72 99 09/08/19 11:35 09/08/19 11:35 09/08/19 11:35 09/08/19 11:35 09/08/19 11:35 O/E: Pt in NAD HEENT: PERRLA Lungs: Diminished on left side CVS: S1, S2+ Abd: Soft, BS+ Ext: Normal ROM Neuro: No focal deficits Laboratory Results - last 24 hr 09/08/19 09/08/19 04:27 04:27 WBC 14.0 H RBC 4.38 Hgb 12.1 Hct 37 MCV 86 MCH 28 MCHC 32 RDW 16 H Plt Count 423 MPV 8.5 Neut % (Auto) 92.0 Lymph % (Auto) 4.3 [place] % (Auto) 3.3 Eos % (Auto) 0.0 Baso % (Auto) 0.4 Absolute Neuts (auto) 12.9 H Absolute Lymphs (auto) 0.6 L Absolute Monos (auto) 0.5 Absolute Eos (auto) 0.0 Absolute Basos (auto) 0.1 Absolute Nucleated RBC 0.0 Nucleated RBC % 0.0 Sodium 137 Potassium 4.5 Chloride 104 Carbon Dioxide 26 Anion Gap 7 BUN 48 H Creatinine 1.18 H Est GFR ( Amer) 53.9 Est GFR (Non-Af Amer) 44.5 BUN/Creatinine Ratio 40.7 H Glucose 164 H Calcium 10.3 I/R: 74 F with PMH of HTN, Asthma, PILAR, Depression and vertigo presented with pleuritic chest pain associated with cough and SOB on exertion, found to have left upper lobe collapse, AFSANEH and elevated troponin. s/p bronchoscopy 09/06 Pt noted to have endobronchial lesion with occlusion of ARIEL Lesion bleeding with minimal suction and biopsies could not be obtained Fluid sent for cytology If unable to get dx from BAL, will need rpt bronchoscopy/EBUS Above was discussed in detail with pt Pt doesnot want aggressive measures, she is also concerned about financial burden Titrate FiO2 as tolerated Pt might need O2 upon d/c Pt might be d/deo in am and bronch can be scheduled as out pt if BAL didnot provide dx
[2019-09-09] MEDS: Cefepime 2 GM in Dextrose(*) 2 GM/50 ML BAG IV SCH (02:11)
[2019-09-09 05:43] LABS: ABS Basophils 0.1 10^3/ul (0-0.2); ABS Lymphocytes 1.3 10^3/ul (1.0-4.8); ABS Monocytes 1.1 10^3/ul (0-0.8); ABS Neutrophils 10.9 10^3/ul (1.5-7.7); Hematocrit 37 % (35-47); Hemoglobin 12.2 g/dL (12.0-16.0); Lymphocyte % 9.6 %; Mean Corpuscular HGB Conc 33 g/dL (31-36); Mean Corpuscular Hemoglobin 28 pg (27-31); Mean Corpuscular Volume 85 fL (80-97); Mean Platelet Volume 8.3 fL (7.4-10.4); Nucleated Red Blood Cells % 0.2; Platelet Count 452 10^3/uL (150-450); Red Cell Distribution Width 16 % (10-15); White Blood Count 13.3 10^3/uL (3.5-10.8)
[2019-09-09 06:05] LABS: BUN/Creatinine Ratio 51.9 (8-20); Calcium 10.9 mg/dL (8.6-10.3); EGFR African American 62.3 (>60); EGFR Non-African American 51.5 (>60); Potassium 4.6 mmol/L (3.5-5.0)
[2019-09-09] MEDS: Heparin VIAL(*) 5000 UNITS/ML VIAL (FIVE THOUSAND) SUBCUT SCH ×3 (06:37→21:03)
[2019-09-09] MEDS: Mometasone/Formoter 200/5 MDI INH SCH ×2 (08:53→20:27)
[2019-09-09] MEDS ORDERED: Amoxicillin/Clavulanate TAB* 875 MG PO SCH (09:00)
[2019-09-09] MEDS: Cyanocobalamin TAB* 500 MCG PO SCH (09:47)
[2019-09-09] MEDS: Cholecalciferol TAB* 1000 UNITS PO SCH (09:47)
[2019-09-09] MEDS: Levofloxacin TAB* 750 MG PO SCH (09:47)
[2019-09-09] MEDS: Magnesium Hydroxide LIQ* 30 ML UDC PO SCH ×2 (09:49→19:51)
--- NOTE | 2019-09-09 15:59 | PN ---
Hospitalist Progress Note Date of Service: 09/09/19 Ms. Duke Gross is a 74 year old woman admitted with cough and SOB and was found to have a postobstructive pneumonia and a likely new diagnosis of lung ca. The pathology of her bronchial washings are pending but expected to be malignant based on Dr. Campo's direct visualization on bronchoscopy. I discussed discharge plans and goals of care at length with Ms. Duke Gross today. She is interested in pursuing treatment and understands that this is likely malignant. There are several barriers to her care going forward. Namely , that she is homebound and has very little support. She has not been to her PCP in about two years due to inability to get there and does not get groceries , etc. She does not know how she will get to pulmonology/oncology appointments. The pathology report is in process now, and once we have the report, we will consult with oncology to assist in treatment planning. Priscilla Buenrostro is assisting with case management planning. Full note to follow.
--- NOTE | 2019-09-09 16:32 | PN ---
Progress Note - Progress Note Date of Service: 09/09/19 - Pulm f/u note Note: patient seen and examined at bedside. Patient reports doing well. Patient denies any issues. Active Medications Generic Name Dose Route Start Last Admin Trade Name Freq PRN Reason Stop Dose Admin Acetaminophen 650 mg 09/07/19 00:26 Tylenol Tab* PO Q6H PRN FEVER/PAIN Albuterol 2.5 mg 09/07/19 17:50 Ventolin 2.5 Mg/3 Ml Neb.Brenad* INH Q4H PRN SOB/WHEEZING Albuterol/Ipratropium 1 neb 09/07/19 03:08 09/07/19 17:22 Duoneb (Albuterol 2.5 Mg/Ipratropium 0.5 Mg) INH 2 neb [id number] AWAKE PRN Administration improved clinical condition Benzonatate 100 mg 09/08/19 13:31 Tessalon Cap* PO Q6H PRN COUGH Cholecalciferol 2,000 units 09/08/19 09:00 09/09/19 09:47 Vitamin D Tab* PO 2,000 units QAM IZZY Administration Cyanocobalamin 500 mcg 09/08/19 09:00 09/09/19 09:47 Vitamin B12 Tab* PO 500 mcg QAM IZZY Administration Guaifenesin/Codeine Phosphate 5 ml 09/08/19 13:30 Robitussin Ac 100mg/10mg In 5 Ml PO Q6H PRN COUGH Heparin Sodium (Porcine) 5,000 units 09/07/19 06:00 09/09/19 16:17 Heparin Vial(*) SUBCUT 5,000 units Q8HR IZZY Administration Hydroxyzine HCl 10 mg 09/07/19 15:39 Atarax Tab* PO QID PRN ANXIETY Levofloxacin 750 mg 09/09/19 09:00 09/09/19 09:47 Levaquin Tab* PO 750 mg DAILY IZZY Administration Protocol Magnesium Hydroxide 30 ml 09/07/19 21:00 09/09/19 09:49 Milk Of Magnesia Liq* PO 30 ml BID IZZY Administration Mometasone Furoate/Formoterol Fumar 2 puff 09/07/19 09:00 09/09/19 08:53 Dulera 200/5 Mdi* INH 2 puff BID IZZY Administration Prednisone 50 mg 09/09/19 09:00 09/09/19 09:47 Deltasone 50 Mg Tab PO 50 mg DAILY IZZY Administration Vital Signs Temp Pulse Resp BP Pulse Ox 97.7 F 76 18 117/61 94 09/09/19 12:03 09/09/19 12:03 09/09/19 12:03 09/09/19 12:03 09/09/19 12:03 O/E: Obese f in NAD HEENT: PERRLA Lungs: Diminished air entry b/l CVS: S1, S2+ Abd: Soft, BS+ Neuro: Alert,awake, no focal deficits Laboratory Results - last 24 hr 09/09/19 09/09/19 05:26 05:26 WBC 13.3 H RBC 4.40 Hgb 12.2 Hct 37 MCV 85 MCH 28 MCHC 33 RDW 16 H Plt Count 452 H MPV 8.3 Neut % (Auto) 81.4 Lymph % (Auto) 9.6 [place] % (Auto) 8.6 Eos % (Auto) 0.0 Baso % (Auto) 0.4 Absolute Neuts (auto) 10.9 H Absolute Lymphs (auto) 1.3 Absolute Monos (auto) 1.1 H Absolute Eos (auto) 0.0 Absolute Basos (auto) 0.1 Absolute Nucleated RBC 0.0 Nucleated RBC % 0.2 Sodium 138 Potassium 4.6 Chloride 107 Carbon Dioxide 26 Anion Gap 5 BUN 54 H Creatinine 1.04 H Est GFR ( Amer) 62.3 Est GFR (Non-Af Amer) 51.5 BUN/Creatinine Ratio 51.9 H Glucose 122 H Calcium 10.9 H I/R: 74 F with PMH of HTN, Asthma, PILAR, Depression and vertigo presented with pleuritic chest pain associated with cough and SOB on exertion, found to have left upper lobe collapse, AFSANEH and elevated troponin. s/p bronchoscopy 09/06 Pt noted to have endobronchial lesion with occlusion of ARIEL Lesion bleeding with minimal suction and biopsies could not be obtained Cell block positive for malignant cells as per prilim from pathology Will await official results Above was discussed in detail with pt Pt doesnot want aggressive measures, she is also concerned about financial burden Titrate FiO2 as tolerated Pt might need O2 upon d/c
--- NOTE | 2019-09-09 17:23 | PN ---
Subjective Date of Service: 09/09/19 Interval History: HD 4 on 09/08 74 F with PMH of HTN, Asthma, PILAR, Depression and vertigo presented with pleuritic chest pain associated with cough and SOB on exertion. FOund to be in severe sepsis secondary to Pneumonia secondary to ?endobronchial obstruction, Left upper lobe collapse, AFSANEH and elevated troponin. s/p bronchoscopy in 09/06. Overnight: No acute overnight events Patient seen and examined at bedside. Patient feels tired although her respiratory sx has improve. She is currently on 1L O2. We discussed in length about possible outcomes and patient wants to know about clearly about prognosis; we don't have the tissue diagnosis yet; but I spoke to Dr. Campo and according to pathologist looks like non small cell cancer. Waiting formal result. Patient has more social needs; transportation and support. Objective Active Medications: Acetaminophen (Tylenol Tab*) 650 mg PO Q6H PRN PRN Reason: FEVER/PAIN Albuterol (Ventolin 2.5 Mg/3 Ml Neb.Brenda*) 2.5 mg INH Q4H PRN PRN Reason: SOB/WHEEZING Albuterol/Ipratropium (Duoneb (Albuterol 2.5 Mg/Ipratropium 0.5 Mg)) 1 neb INH [id number] AWAKE PRN PRN Reason: improved clinical condition Last Admin: 09/07/19 17:22 Dose: 2 neb Benzonatate (Tessalon Cap*) 100 mg PO Q6H PRN PRN Reason: COUGH Cholecalciferol (Vitamin D Tab*) 2,000 units PO QAM [facility] Last Admin: 09/09/19 09:47 Dose: 2,000 units Cyanocobalamin (Vitamin B12 Tab*) 500 mcg PO QAM [facility] Last Admin: 09/09/19 09:47 Dose: 500 mcg Guaifenesin/Codeine Phosphate (Robitussin Ac 100mg/10mg In 5 Ml) 5 ml PO Q6H PRN PRN Reason: COUGH Heparin Sodium (Porcine) (Heparin Vial(*)) 5,000 units SUBCUT Q8HR [facility] Last Admin: 09/09/19 16:17 Dose: 5,000 units Hydroxyzine HCl (Atarax Tab*) 10 mg PO QID PRN PRN Reason: ANXIETY Levofloxacin (Levaquin Tab*) 750 mg PO DAILY [facility]; Protocol Last Admin: 09/09/19 09:47 Dose: 750 mg Magnesium Hydroxide (Milk Of Martha Liq*) 30 ml PO BID [facility] Last Admin: 09/09/19 09:49 Dose: 30 ml Mometasone Furoate/Formoterol Fumar (Dulera 200/5 Mdi*) 2 puff INH BID [facility] Last Admin: 09/09/19 08:53 Dose: 2 puff Prednisone (Deltasone 50 Mg Tab) 50 mg PO DAILY [facility] Last Admin: 09/09/19 09:47 Dose: 50 mg Vital Signs - 8 hr 09/09/19 09/09/19 12:03 15:59 Temperature 97.7 F 97.5 F Pulse Rate 76 82 Respiratory 18 16 Rate Blood Pressure 117/61 154/52 (mmHg) O2 Sat by Pulse 94 96 Oximetry Oxygen Devices in Use Now: Nasal Cannula Exam: Patient is lying on a bed in supine position and is not in acute dstress. HEENT: Normocephalic and atraumatic. Sclera anicteric. EOMI. PERRLA. Neck: No lymphadenopathy and enlarged thyroid. NO JVD elevation. Lungs: Good respiratory effort and chest expansion. Ronchi heard Heart: Normal in rate and rhythm. S1/S2 heard with no murmur, rubs or gallops. Abdomen: Soft, obese and nontender. Normal BS heard. Extremities; No swelling, cyanosis or clubbing Neuro: Alert, oriented and coperative. CN intact. Motor normal and sensation intact. Result Diagrams: 09/09/19 05:26 09/09/19 05:26 Additional Lab and Data: Lab Results 09/06/19 09/06/19 Range/Units 20:20 21:21 WBC 18.0 H (3.5-10.8) 10^3/uL RBC 4.75 (3.70-4.87) 10^6 /uL Hgb 13.6 (12.0-16.0) g/dL Hct 40 (35-47) % MCV 85 (80-97) fL MCH 29 (27-31) pg MCHC 34 (31-36) g/dL RDW 16 H (10-15) % Plt Count 376 (150-450) 10^3/uL MPV 8.5 (7.4-10.4) fL Neut % (Auto) Pending Lymph % (Auto) Pending [place] % (Auto) Pending Eos % (Auto) Pending Baso % (Auto) Pending Absolute Neuts (auto) Pending Absolute Lymphs (auto) Pending Absolute Monos (auto) Pending Absolute Eos (auto) Pending Absolute Basos (auto) Pending Absolute Nucleated RBC Pending Nucleated RBC % Pending Influenza A (Rapid) Negative (Negative) Influenza B (Rapid) Negative (Negative) Assess/Plan/Problems-Billing Assessment: 74 F with PMH of HTN, Asthma/COPD, PILAR, Depression and vertigo presented with pleuritic chest pain associated with cough and SOB on exertion. FOund to be in severe sepsis secondary to Pneumonia secondary to ?endobronchial obstruction, Left upper lobe collapse, AFSANEH and elevated troponin.s/p bronchoscopy on 09/06 - Patient Problems (1) Severe sepsis Current Visit: Yes Status: Acute Code(s): A41.9 - SEPSIS, UNSPECIFIED ORGANISM; R65.20 - SEVERE SEPSIS WITHOUT SEPTIC SHOCK SNOMED Code(s): 09990328 Comment: -resolved -Source: pneumonia- postobstructive -on Iv cefepiume(started on 09/06) -switched to levofloxacin on 09/08; as allergic to penicillin (2) Pneumonia Current Visit: Yes Status: Acute Code(s): J18.9 - PNEUMONIA, UNSPECIFIED ORGANISM SNOMED Code(s): 147931988 Comment: -has left sided PNA -post-obstructive -CT showing left upper lobe collapse -s/p broch on 09/06; showing endoobronchial lesion with almost complete occlusion of left upper lobe bronchus; Biopsy not taken; sent bronchial wash; pending results -Appreciate pulm input -IV cefepime started on 09/06- switched to levoquin on 09/08 (3) COPD (chronic obstructive pulmonary disease) Current Visit: Yes Status: Acute Code(s): J44.9 - CHRONIC OBSTRUCTIVE PULMONARY DISEASE, UNSPECIFIED SNOMED Code(s): 90524461 Comment: -gives history of both asthma and COPD -follows with asthma and allergy associates -continue albuterol, dulera and duoneb -started on steroid(09/06)- switched to PO from 09/08 (4) AFSANEH (acute kidney injury) Current Visit: Yes Status: Acute Code(s): N17.9 - ACUTE KIDNEY FAILURE, UNSPECIFIED SNOMED Code(s): 10325278 Comment: -Improved IV fluids; stopped IVF on 09/07- creatinine improving -could be pre-renal- as pt was not eating well -will trend (5) S/P bariatric surgery Current Visit: Yes Status: Acute Code(s): Z98.84 - BARIATRIC SURGERY STATUS SNOMED Code(s): 162268807 Comment: -16 years ago -contiue vitamins -morbid obesity (6) Hypercalcemia Current Visit: Yes Status: Acute Code(s): E83.52 - HYPERCALCEMIA SNOMED Code(s): 97206046 Comment: -has lymphadenopathy and hypercalcemia -improved with fluids -suspicion of malignancy- pending sample result (7) Elevated troponin Current Visit: Yes Status: Acute Code(s): R79.89 - OTHER SPECIFIED ABNORMAL FINDINGS OF BLOOD CHEMISTRY SNOMED Code(s): 502683385 Comment: -likely demand (8) Hypertension Current Visit: Yes Status: Acute Code(s): I10 - ESSENTIAL (PRIMARY) HYPERTENSION SNOMED Code(s): 40009982 Comment: -remote hx of HTN -not on medication at present; Bp controlled -will continue to monitor (9) DVT prophylaxis Current Visit: Yes Status: Acute Code(s): Z29.9 - ENCOUNTER FOR PROPHYLACTIC MEASURES, UNSPECIFIED SNOMED Code(s): 275501301 Comment: -heparin (10) DNR (do not resuscitate) Current Visit: Yes Status: Acute Status and Disposition: Inpatient -pulm following -has social issues- CM and social work to follow Attending: Dia Harden Attestation Documenting Resident: Libra Supervising Physician: Fina Attending/Supervising Physician Comment: Arranging more home support so that Ruben can get to appointments (see my note from earlier regarding our discussion). Prelim path report verbally is NSCLCa. Attestation: This service has been performed in part by a resident under the direction of a teaching physician.I, Fina, performed the service, or was physically present during the critical, or yanez portions of the service, furnished by the resident. I participated in the management of the patient.
--- NOTE | 2019-09-09 20:09 | CONSULT ---
Consultation - Reason for Consultation Reason for Consultation: Left Upper lobe endobronchial mass and possible post obstructive pneumonia Ordering Provider: Dia Harden Chief Complaint: Left upper lobe endobronchial mass, possible post obstructive pneumonia History of Present Illness: I am asked to evaluate this 74 year old woman for suspected left sided lung malignancy. She presented with pleurisy, dyspnea and suspected sepsis. CXR with consolidation of the ARIEL and Lingula , CT with ARIEL lung collapse, opacification of the ARIEL bronchus and a 1.6 cm pretracheal node 09/07/2019 Bronchoscopy with friable lesion endobronchial ARIEL NOT biopsied, pathology of washings preliminary malignant. Of note is hypercalcemia Calcium 10.9 with albumin 3.1 WBC 13.3 Hg 12 and platelets 452 She notes that she feels stronger. persistent cough NOT productive at this time She reports no Hemoptysis Allergies/Medications Allergies/Adverse Reactions: Allergies Allergy/AdvReac Type Severity Reaction Status Date / Time aspirin Allergy Bleeding Verified 09/06/19 20:12 Penicillins Allergy Anaphylatic Verified 09/06/19 20:12 Shock ENVIRONMENTAL Allergy WHEEZE, Uncoded 10/14/13 07:23 ITCHING, SNEEZING History - Past Medical History Hx Blood Dyscrasias: No Hx Cancer: Yes - suspected lung Hx Cardiac Disorders: No Hx Circulatory Problems: No Hx Diabetes: No Hx Hypercholesterolemia: No Hx Hypertension: No Hx Musculoskeletal Deformity: No Surgical History: Yes - Tubal ligation, Left Knee, Cataracts, Lap Mariella, Gastric bypass - Social History Hx Alcohol Use: No Hx Tobacco Use: Yes Review of Systems - Review of Systems Constitutional Symptoms: Positive: Fatigue Dermatology: Positive: Normal HEENT: Positive: Normal Eyes: Positive: Normal Thyroid: Positive: Normal Pulmonary: Positive: Cough, Shortness of Breath Cardiology: Positive: Normal Gastroenterology: Positive: Normal Endocrinology: Positive: Normal Neurology: Positive: Normal Psychiatry: Positive: Normal Physical Exam - Physical Exam Physical Examination: Alert and conversant Rhonchi upper left lung field Decreased breath sounds left base Cardiac RRR Abdomen soft Neuro grossly nonfocal Results - Lab Results Lab Results: 09/06/19 09/06/19 09/06/19 20:20 21:21 21:21 WBC 18.0 H RBC 4.75 Hgb 13.6 Hct 40 MCV 85 MCH 29 MCHC 34 RDW 16 H Plt Count 376 MPV 8.5 Neut % (Auto) 82.3 Lymph % (Auto) 7.2 [place] % (Auto) 9.6 Eos % (Auto) 0.2 Baso % (Auto) 0.7 Absolute Neuts (auto) 14.8 H Absolute Lymphs (auto) 1.3 Absolute Monos (auto) 1.7 H Absolute Eos (auto) 0.0 Absolute Basos (auto) 0.1 Absolute Nucleated RBC 0.0 Nucleated RBC % 0.0 INR (Anticoag Therapy) APTT ABG pH ABG pCO2 ABG pO2 ABG HCO3 ABG O2 Saturation ABG Base Excess Sodium 135 Potassium 3.9 Chloride 101 Carbon Dioxide 19 L Anion Gap 15 H BUN 32 H Creatinine 1.37 H Est GFR ( Amer) 45.4 Est GFR (Non-Af Amer) 37.5 BUN/Creatinine Ratio 23.4 H Glucose 111 H Lactic Acid Calcium 11.1 H Total Bilirubin 1.20 H AST 19 ALT 21 Alkaline Phosphatase 203 H Troponin I 0.01 B-Natriuretic Peptide Total Protein 7.4 Albumin 3.1 L Globulin 4.3 H Albumin/Globulin Ratio 0.7 L Influenza A (Rapid) Negative Influenza B (Rapid) Negative 09/06/19 09/06/19 09/06/19 21:21 21:21 21:21 WBC RBC Hgb Hct MCV MCH MCHC RDW Plt Count MPV Neut % (Auto) Lymph % (Auto) [place] % (Auto) Eos % (Auto) Baso % (Auto) Absolute Neuts (auto) Absolute Lymphs (auto) Absolute Monos (auto) Absolute Eos (auto) Absolute Basos (auto) Absolute Nucleated RBC Nucleated RBC % INR (Anticoag Therapy) 1.34 H APTT ABG pH ABG pCO2 ABG pO2 ABG HCO3 ABG O2 Saturation ABG Base Excess Sodium Potassium Chloride Carbon Dioxide Anion Gap BUN Creatinine Est GFR ( Amer) Est GFR (Non-Af Amer) BUN/Creatinine Ratio Glucose Lactic Acid 1.0 Calcium Total Bilirubin AST ALT Alkaline Phosphatase Troponin I B-Natriuretic Peptide 102 H Total Protein Albumin Globulin Albumin/Globulin Ratio Influenza A (Rapid) Influenza B (Rapid) 09/06/19 09/07/19 09/07/19 23:03 00:38 00:38 WBC RBC Hgb Hct MCV MCH MCHC RDW Plt Count MPV Neut % (Auto) Lymph % (Auto) [place] % (Auto) Eos % (Auto) Baso % (Auto) Absolute Neuts (auto) Absolute Lymphs (auto) Absolute Monos (auto) Absolute Eos (auto) Absolute Basos (auto) Absolute Nucleated RBC Nucleated RBC % INR (Anticoag Therapy) APTT 35.8 ABG pH 7.36 ABG pCO2 34 L ABG pO2 67 L ABG HCO3 20.6 ABG O2 Saturation 92.0 L ABG Base Excess -5.4 L Sodium Potassium Chloride Carbon Dioxide Anion Gap BUN Creatinine Est GFR ( Amer) Est GFR (Non-Af Amer) BUN/Creatinine Ratio Glucose Lactic Acid 1.0 Calcium Total Bilirubin AST ALT Alkaline Phosphatase Troponin I B-Natriuretic Peptide Total Protein Albumin Globulin Albumin/Globulin Ratio Influenza A (Rapid) Influenza B (Rapid) 09/07/19 09/07/19 09/07/19 00:38 03:04 05:37 WBC 15.3 H RBC 4.72 Hgb 13.1 Hct 41 MCV 86 MCH 28 MCHC 32 RDW 16 H Plt Count 372 MPV 8.1 Neut % (Auto) 95.3 Lymph % (Auto) 3.3 [place] % (Auto) 1.1 Eos % (Auto) 0.0 Baso % (Auto) 0.3 Absolute Neuts (auto) 14.5 H Absolute Lymphs (auto) 0.5 L Absolute Monos (auto) 0.2 Absolute Eos (auto) 0.0 Absolute Basos (auto) 0.1 Absolute Nucleated RBC 0.0 Nucleated RBC % 0.0 INR (Anticoag Therapy) APTT ABG pH ABG pCO2 ABG pO2 ABG HCO3 ABG O2 Saturation ABG Base Excess Sodium Potassium Chloride Carbon Dioxide Anion Gap BUN Creatinine Est GFR ( Amer) Est GFR (Non-Af Amer) BUN/Creatinine Ratio Glucose Lactic Acid Calcium Total Bilirubin AST ALT Alkaline Phosphatase Troponin I 0.01 0.03 H* B-Natriuretic Peptide Total Protein Albumin Globulin Albumin/Globulin Ratio Influenza A (Rapid) Influenza B (Rapid) 09/07/19 09/07/19 09/08/19 05:37 05:37 04:27 WBC RBC Hgb Hct MCV MCH MCHC RDW Plt Count MPV Neut % (Auto) Lymph % (Auto) [place] % (Auto) Eos % (Auto) Baso % (Auto) Absolute Neuts (auto) Absolute Lymphs (auto) Absolute Monos (auto) Absolute Eos (auto) Absolute Basos (auto) Absolute Nucleated RBC Nucleated RBC % INR (Anticoag Therapy) 1.22 H APTT ABG pH ABG pCO2 ABG pO2 ABG HCO3 ABG O2 Saturation ABG Base Excess Sodium 135 137 Potassium 4.4 4.5 Chloride 101 104 Carbon Dioxide 22 26 Anion Gap 12 H 7 BUN 36 H 48 H Creatinine 1.38 H 1.18 H Est GFR ( Amer) 45.0 53.9 Est GFR (Non-Af Amer) 37.2 44.5 BUN/Creatinine Ratio 26.1 H 40.7 H Glucose 154 H 164 H Lactic Acid Calcium 10.9 H 10.3 Total Bilirubin AST ALT Alkaline Phosphatase Troponin I 0.03 H* B-Natriuretic Peptide Total Protein Albumin Globulin Albumin/Globulin Ratio Influenza A (Rapid) Influenza B (Rapid) 09/08/19 09/09/19 09/09/19 04:27 05:26 05:26 WBC 14.0 H 13.3 H RBC 4.38 4.40 Hgb 12.1 12.2 Hct 37 37 MCV 86 85 MCH 28 28 MCHC 32 33 RDW 16 H 16 H Plt Count 423 452 H MPV 8.5 8.3 Neut % (Auto) 92.0 81.4 Lymph % (Auto) 4.3 9.6 [place] % (Auto) 3.3 8.6 Eos % (Auto) 0.0 0.0 Baso % (Auto) 0.4 0.4 Absolute Neuts (auto) 12.9 H 10.9 H Absolute Lymphs (auto) 0.6 L 1.3 Absolute Monos (auto) 0.5 1.1 H Absolute Eos (auto) 0.0 0.0 Absolute Basos (auto) 0.1 0.1 Absolute Nucleated RBC 0.0 0.0 Nucleated RBC % 0.0 0.2 INR (Anticoag Therapy) APTT ABG pH ABG pCO2 ABG pO2 ABG HCO3 ABG O2 Saturation ABG Base Excess Sodium 138 Potassium 4.6 Chloride 107 Carbon Dioxide 26 Anion Gap 5 BUN 54 H Creatinine 1.04 H Est GFR ( Amer) 62.3 Est GFR (Non-Af Amer) 51.5 BUN/Creatinine Ratio 51.9 H Glucose 122 H Lactic Acid Calcium 10.9 H Total Bilirubin AST ALT Alkaline Phosphatase Troponin I B-Natriuretic Peptide Total Protein Albumin Globulin Albumin/Globulin Ratio Influenza A (Rapid) Influenza B (Rapid) Assessment and Plan Impression: Left upper lobe endobronchial lesion with Left upper lobe collapse Preliminary malignancy, awaiting final pathology Possible post obstructive pneumonia/sepsis syndrome Hypercalcemia possible related to malignancy Mild thrombocytosis related to #1 Minimally elevated troponin, ? demand ischemia Plan: Await final Pathology If malignancy defined will require additional staging to include WEB SIZER MRI and PET Imaging Check PTH and PTHrp Reviewed clinical presentation, radiographic findings and interventions to date with patient
[2019-09-10 05:15] LABS: Hematocrit 41 % (35-47); Hemoglobin 13.2 g/dL (12.0-16.0); Mean Corpuscular HGB Conc 32 g/dL (31-36); Mean Corpuscular Hemoglobin 28 pg (27-31); Mean Corpuscular Volume 86 fL (80-97); Mean Platelet Volume 8.5 fL (7.4-10.4); Platelet Count 483 10^3/uL (150-450); Red Blood Count 4.79 10^6 /uL (3.70-4.87); Red Cell Distribution Width 16 % (10-15); White Blood Count 11.4 10^3/uL (3.5-10.8)
[2019-09-10 05:31] LABS: BUN/Creatinine Ratio 47.7 (8-20); Calcium 11.7 mg/dL (8.6-10.3); EGFR African American 57.8 (>60); EGFR Non-African American 47.8 (>60); Potassium 4.3 mmol/L (3.5-5.0)
[2019-09-10] MEDS: Heparin VIAL(*) 5000 UNITS/ML VIAL (FIVE THOUSAND) SUBCUT SCH ×3 (05:51→21:34)
[2019-09-10] MEDS: Mometasone/Formoter 200/5 MDI INH SCH ×2 (09:48→21:02)
[2019-09-10] MEDS: Cholecalciferol TAB* 1000 UNITS PO SCH (10:36)
[2019-09-10] MEDS: Levofloxacin TAB* 750 MG PO SCH (10:37)
[2019-09-10] MEDS: Magnesium Hydroxide LIQ* 30 ML UDC PO SCH ×2 (10:37→21:34)
[2019-09-10] MEDS: Cyanocobalamin TAB* 500 MCG PO SCH (10:37)
--- NOTE | 2019-09-10 16:20 | PN ---
Subjective Date of Service: 09/10/19 Interval History: HD 5 on 09/09 74 F with PMH of HTN, Asthma, PILAR, Depression and vertigo presented with pleuritic chest pain associated with cough and SOB on exertion. FOund to be in severe sepsis secondary to Pneumonia secondary to ?endobronchial obstruction, Left upper lobe collapse, AFSANEH and elevated troponin. s/p bronchoscopy in 09/06. Overnight: No acute overnight events Patient seen and examined at bedside. patient has intermittent dry cough. Patient curious about pathology results. still requiring 1L oxygen. Patient had BM today. Objective Active Medications: Acetaminophen (Tylenol Tab*) 650 mg PO Q6H PRN PRN Reason: FEVER/PAIN Last Admin: 09/10/19 15:07 Dose: 650 mg Albuterol (Ventolin 2.5 Mg/3 Ml Neb.Brenda*) 2.5 mg INH Q4H PRN PRN Reason: SOB/WHEEZING Albuterol/Ipratropium (Duoneb (Albuterol 2.5 Mg/Ipratropium 0.5 Mg)) 1 neb INH [id number] AWAKE PRN PRN Reason: improved clinical condition Last Admin: 09/07/19 17:22 Dose: 2 neb Benzonatate (Tessalon Cap*) 100 mg PO Q6H PRN PRN Reason: COUGH Cholecalciferol (Vitamin D Tab*) 2,000 units PO QAM [facility] Last Admin: 09/10/19 10:36 Dose: 2,000 units Cyanocobalamin (Vitamin B12 Tab*) 500 mcg PO QAM [facility] Last Admin: 09/10/19 10:37 Dose: 500 mcg Guaifenesin/Codeine Phosphate (Robitussin Ac 100mg/10mg In 5 Ml) 5 ml PO Q6H PRN PRN Reason: COUGH Heparin Sodium (Porcine) (Heparin Vial(*)) 5,000 units SUBCUT Q8HR [facility] Last Admin: 09/10/19 15:06 Dose: 5,000 units Hydroxyzine HCl (Atarax Tab*) 10 mg PO QID PRN PRN Reason: ANXIETY Levofloxacin (Levaquin Tab*) 750 mg PO DAILY [facility]; Protocol Last Admin: 09/10/19 10:37 Dose: 750 mg Magnesium Hydroxide (Milk Of Magnesia Liq*) 30 ml PO BID [facility] Last Admin: 09/10/19 10:37 Dose: 30 ml Mometasone Furoate/Formoterol Fumar (Dulera 200/5 Mdi*) 2 puff INH BID [facility] Last Admin: 09/10/19 09:48 Dose: 2 puff Prednisone (Deltasone 50 Mg Tab) 50 mg PO DAILY [facility] Last Admin: 09/10/19 10:37 Dose: 50 mg Vital Signs - 8 hr 09/10/19 09/10/19 09/10/19 09:51 11:57 15:09 Temperature 97.4 F 97.9 F Pulse Rate 92 99 90 Respiratory 16 18 18 Rate Blood Pressure 145/92 132/63 (mmHg) O2 Sat by Pulse 95 96 96 Oximetry Oxygen Devices in Use Now: Nasal Cannula Exam: Patient is lying on a bed in supine position and is not in acute dstress. HEENT: Normocephalic and atraumatic. Sclera anicteric. EOMI. PERRLA. Neck: No lymphadenopathy and enlarged thyroid. NO JVD elevation. Lungs: Good respiratory effort and chest expansion. Heart: Normal in rate and rhythm. S1/S2 heard with no murmur, rubs or gallops. Abdomen: Soft, obese and nontender. Normal BS heard. Extremities; No swelling, cyanosis or clubbing Neuro: Alert, oriented and coperative. CN intact. Motor normal and sensation intact. Result Diagrams: 09/10/19 04:38 09/10/19 04:38 Additional Lab and Data: Lab Results 09/06/19 09/06/19 Range/Units 20:20 21:21 WBC 18.0 H (3.5-10.8) 10^3/uL RBC 4.75 (3.70-4.87) 10^6 /uL Hgb 13.6 (12.0-16.0) g/dL Hct 40 (35-47) % MCV 85 (80-97) fL MCH 29 (27-31) pg MCHC 34 (31-36) g/dL RDW 16 H (10-15) % Plt Count 376 (150-450) 10^3/uL MPV 8.5 (7.4-10.4) fL Neut % (Auto) Pending Lymph % (Auto) Pending [place] % (Auto) Pending Eos % (Auto) Pending Baso % (Auto) Pending Absolute Neuts (auto) Pending Absolute Lymphs (auto) Pending Absolute Monos (auto) Pending Absolute Eos (auto) Pending Absolute Basos (auto) Pending Absolute Nucleated RBC Pending Nucleated RBC % Pending Influenza A (Rapid) Negative (Negative) Influenza B (Rapid) Negative (Negative) Assess/Plan/Problems-Billing Assessment: 74 F with PMH of HTN, Asthma/COPD, PILAR, Depression and vertigo presented with pleuritic chest pain associated with cough and SOB on exertion. FOund to be in severe sepsis secondary to Pneumonia secondary to ?endobronchial obstruction, Left upper lobe collapse, AFSANEH and elevated troponin.s/p bronchoscopy on 09/06 - Patient Problems (1) Severe sepsis Current Visit: Yes Status: Acute Code(s): A41.9 - SEPSIS, UNSPECIFIED ORGANISM; R65.20 - SEVERE SEPSIS WITHOUT SEPTIC SHOCK SNOMED Code(s): 72761400 Comment: -resolved -Source: pneumonia- postobstructive -on Iv cefepiume(started on 09/06) -switched to levofloxacin on 09/08; as allergic to penicillin (2) Pneumonia Current Visit: Yes Status: Acute Code(s): J18.9 - PNEUMONIA, UNSPECIFIED ORGANISM SNOMED Code(s): 128708615 Comment: -has left sided PNA -post-obstructive -CT showing left upper lobe collapse -s/p broch on 09/06; showing endoobronchial lesion with almost complete occlusion of left upper lobe bronchus; Biopsy not taken; sent bronchial wash; pending results -Appreciate pulm input -IV cefepime started on 09/06- switched to levoquin on 09/08 (3) COPD (chronic obstructive pulmonary disease) Current Visit: Yes Status: Acute Code(s): J44.9 - CHRONIC OBSTRUCTIVE PULMONARY DISEASE, UNSPECIFIED SNOMED Code(s): 77673497 Comment: -gives history of both asthma and COPD -follows with asthma and allergy associates -continue albuterol, dulera and duoneb -started on steroid(09/06)- switched to PO from 09/08- stop tomorrow (4) AFSANEH (acute kidney injury) Current Visit: Yes Status: Acute Code(s): N17.9 - ACUTE KIDNEY FAILURE, UNSPECIFIED SNOMED Code(s): 61940939 Comment: -Improved IV fluids; stopped IVF on 09/07- creatinine improving -could be pre-renal- as pt was not eating well -will trend (5) S/P bariatric surgery Current Visit: Yes Status: Acute Code(s): Z98.84 - BARIATRIC SURGERY STATUS SNOMED Code(s): 808887212 Comment: -16 years ago -contiue vitamins -morbid obesity (6) Hypercalcemia Current Visit: Yes Status: Acute Code(s): E83.52 - HYPERCALCEMIA SNOMED Code(s): 53657387 Comment: -has lymphadenopathy and hypercalcemia -improved with fluids- stopped fluids but calcium rising up -this could also be the reason of constipation -suspicion of malignancy- pending sample result -elevated pth; pending pthrp. -will give fluids now. (7) Elevated troponin Current Visit: Yes Status: Acute Code(s): R79.89 - OTHER SPECIFIED ABNORMAL FINDINGS OF BLOOD CHEMISTRY SNOMED Code(s): 106515632 Comment: -likely demand (8) Hypertension Current Visit: Yes Status: Acute Code(s): I10 - ESSENTIAL (PRIMARY) HYPERTENSION SNOMED Code(s): 51711608 Comment: -remote hx of HTN -not on medication at present; Bp controlled -will continue to monitor (9) DVT prophylaxis Current Visit: Yes Status: Acute Code(s): Z29.9 - ENCOUNTER FOR PROPHYLACTIC MEASURES, UNSPECIFIED SNOMED Code(s): 919555772 Comment: -heparin (10) DNR (do not resuscitate) Current Visit: Yes Status: Acute Status and Disposition: Inpatient -pulm following -has social issues -dc to home after sample results with outpatient f/u with Onc Attending: Dia Harden Attestation Documenting Resident: Libra Supervising Physician: Fina Attending/Supervising Physician Comment: Squamous Cell Lung Carcinoma with Post-Obstructive Pneumonia Disposition planning has been challenging due to Ms. Duke Gross's homebound status, unwillingness to share this diagnosis with her friend who drives, and weakness/inability to take public transportation. I urged her strongly to reconsider STR, but she declines. I offered hospice, which she has positive views of, but she first wishes to pursue a prognosis further. Pathology report returned late this afternoon, so we will reconsult with Dr. Lorenzana to help offer his expertise to her so help her decide whether she wishes to pursue treatment, or opt for hospice. Her Hypercalcemia is curious, as I would expect her PTH to be suppressed. Resume IVF. May need calcitonin, ZA, or bisphosphenate. Attestation: This service has been performed in part by a resident under the direction of a teaching physician.I, Fina, performed the service, or was physically present during the critical, or yanez portions of the service, furnished by the resident. I participated in the management of the patient.
[2019-09-10] MEDS ORDERED: NS 0.9% 1000 ML** 1,000 ML IV ONE (16:21)
[2019-09-11 05:15] LABS: BUN/Creatinine Ratio 43.3 (8-20); Calcium 10.7 mg/dL (8.6-10.3); EGFR African American 67.6 (>60); EGFR Non-African American 55.8 (>60); Potassium 4.6 mmol/L (3.5-5.0)
[2019-09-11] MEDS: Heparin VIAL(*) 5000 UNITS/ML VIAL (FIVE THOUSAND) SUBCUT SCH (06:05)
[2019-09-11] MEDS: Levofloxacin TAB* 750 MG PO SCH (07:56)
[2019-09-11] MEDS: Magnesium Hydroxide LIQ* 30 ML UDC PO SCH (07:56)
[2019-09-11] MEDS: Cyanocobalamin TAB* 500 MCG PO SCH (07:56)
[2019-09-11] MEDS: Mometasone/Formoter 200/5 MDI INH SCH (09:10)
[2019-09-11 12:01] VITALS: BP 149/65
[2019-09-11] MEDS ORDERED: Zoledronic Acid* 4 MG in NS 0.9% 100 ML* 95 ML IVPB ONE (12:30)
--- NOTE | 2019-09-11 18:05 | DS ---
CC: Dr. Wild Dudley; Dr. Yury Lorenzana, Oncology * DISCHARGE SUMMARY: DATE OF ADMISSION: 09/07/19 DATE OF DISCHARGE: 09/11/19 PRIMARY CARE PHYSICIAN: Dr. Wild Dudley. PRINCIPAL DISCHARGE DIAGNOSES: 1. New diagnosis of squamous cell lung cancer. 2. Postobstructive pneumonia. 3. Hypercalcemia. 4. Severe sepsis. SECONDARY DISCHARGE DIAGNOSES: 1. Hypertension. 2. Arthritis. 3. Obstructive sleep apnea. 4. Depression. DISCHARGE MEDICATIONS: 1. Vitamin B12 500 mcg daily. 2. Citalopram 30 mg q.h.s. 3. Hydrochlorothiazide 25 mg daily. 4. Multivitamin daily. 5. Advair 500/50 one puff inhaled daily. 6. Albuterol 2 puffs q.4 p.r.n. wheezing. 7. Tylenol 2 tabs p.r.n. pain. 8. Ferrous gluconate 256 units b.i.d. 9. Vitamin D3 2000 units daily. 10. Hydroxyzine 10 mg 4 times daily p.r.n. anxiety. 11. Albuterol nebulizer 2.5 mg inhaled q.4 p.r.n. wheezing. 12. Tessalon Perles 100 mg q.6 p.r.n. cough. 13. Levaquin 750 mg daily for 5 more days. 14. Magnesium hydroxide 30 mL b.i.d. p.r.n. constipation. 15. Robitussin 5 mL q.4 p.r.n. cough. PHYSICAL EXAMINATION: Temperature 97.3, heart rate 103, respiratory rate 20, pulse ox 98% on 2 L, blood pressure 149/65. General: Alert, well-appearing woman, in no distress, sitting up in bed. HEENT: Pupils are equal, round, and reactive to light. Oral mucosa is moist. Neck: No JVP. No cervical or supraclavicular adenopathy. Chest: Regular rate and rhythm. Her lungs have good aeration bilaterally with no wheezes or rhonchi. Abdomen: Obese, soft, nontender, nondistended. Extremities: No edema, rashes, or ulcers. PERTINENT STUDIES ON THIS EXAM: A chest CT from 09/06/19 shows left upper lobe collapse and opacification of the left upper lobe bronchus. A bronchoscopy was suggested to exclude an endobronchial tumor and pretracheal lymphadenopathy. The pathology report from 09/07/19 shows invasive squamous cell carcinoma, moderately differentiated. CONSULTATIONS DURING THIS ADMISSION: Dr. Gwendolyn Campo of Pulmonology, Dr. Yury Lorenzana of Oncology. HOSPITAL COURSE BY PROBLEM: 1. New diagnosis of invasive squamous cell lung cancer. Ms. Duke Gross presented with symptoms of pneumonia, however, was noted to have a suspicion for postobstructive pneumonia, so Dr. Campo was consulted and performed a bronchoscopy on 09/07/19. The pathology report shows squamous cell carcinoma as above. Ms. Gross was interested in pursuing treatment and workup, so we consulted Oncology, who recommended outpatient followup for a brain MRI and a PET scan for further recommendations. She is agreeable to this plan. 2. Hypercalcemia. Curiously, her intact PTH was actually elevated. I would expect it to be suppressed and expect her hypercalcemia to be caused by PTHrP, but regardless she received a dose of zoledronic acid as well as IV fluids and this will need to be followed up as an outpatient. She is encouraged to stay hydrated. 3. Postobstructive pneumonia. She received 5 days of IV antibiotics in the hospital and she is being discharged on 5 more days of levofloxacin. DISPOSITION: Ms. Duke Gross is being discharged to home on 09/11/19. The oncology office will call her with a followup appointment, which will be planned for next week. She understands to wait for this call. Case Management has followed closely and referred her to [facility] for assistance with post discharge resources as she has limited support. She is also homebound and will need help with transportation and she will be calling on her friends to transport her to her appointments. CONDITION AT THE TIME OF DISCHARGE: Stable. [id number]/[facility] #: [id number] [facility]
== END 2019-09-11 14:00 | disposition home health service (06) | DRG 871 ==
LOC: ED 19:59 → MED 09-07 00:13
PROVIDERS: ADMIT Nurse Practitioner Family; ATTEND Internal Medicine
PROC: 0B9G8ZX Drainage of Left Upper Lung Lobe, Via Natural or Artificial Opening Endoscopic, Diagnostic (ICD-10-PCS; principal; 2019-09-07)
DX: A41.9 Sepsis, unspecified organism (principal); J18.9 Pneumonia, unspecified organism; N17.9 Acute kidney failure, unspecified; Z68.43 Body mass index [BMI] 50.0-59.9, adult; J45.901 Unspecified asthma with (acute) exacerbation; J44.0 Chronic obstructive pulmonary disease with (acute) lower respiratory infection; C34.90 Malignant neoplasm of unspecified part of unspecified bronchus or lung; J98.19 Other pulmonary collapse; J98.11 Atelectasis; J98.09 Other diseases of bronchus, not elsewhere classified; Z66 Do not resuscitate; I11.9 Hypertensive heart disease without heart failure; R65.20 Severe sepsis without septic shock; R09.02 Hypoxemia; E83.52 Hypercalcemia; F32.9 Major depressive disorder, single episode, unspecified; R42 Dizziness and giddiness; G47.33 Obstructive sleep apnea (adult) (pediatric); M19.90 Unspecified osteoarthritis, unspecified site; E66.01 Morbid (severe) obesity due to excess calories; E86.0 Dehydration; R00.0 Tachycardia, unspecified; M94.0 Chondrocostal junction syndrome [Tietze]; R09.1 Pleurisy; R74.8 Abnormal levels of other serum enzymes; Z96.652 Presence of left artificial knee joint; Z98.84 Bariatric surgery status; Z79.51 Long term (current) use of inhaled steroids; Z79.899 Other long term (current) drug therapy; Z88.6 Allergy status to analgesic agent; Z88.0 Allergy status to penicillin; Z91.048 Other nonmedicinal substance allergy status; Z87.891 Personal history of nicotine dependence; Z80.1 Family history of malignant neoplasm of trachea, bronchus and lung; Z81.2 Family history of tobacco abuse and dependence; Z82.69 Family history of other diseases of the musculoskeletal system and connective tissue
CPT/HCPCS: 31624; 36415; 71045; 71250; 80048; 80053; 81445; 82397; 82803; 83605; 83880; 83970; 84484; 85025; 85027; 85610; 85730; 87040; 87070; 87205; 87899; 88112; 88305; 88341; 88342; 88360; 93005; 94640; 96374; 99223; 99284; A9270-GY; J0692; J1644; J2250; J2920; J2930; J3010; J3489; J7512